=== PATIENT | female | born 1985 | race Caucasian/White ===

== ENCOUNTER 2016-03-22 12:19 | Outpatient (CLI) | payer OTHER | END 2016-03-22 12:20 | disposition home or self-care (01) | DX: Z53.9 Procedure and treatment not carried out, unspecified reason (principal) ==

== ENCOUNTER 2016-05-07 10:19 | Outpatient (CLI) | payer OTHER | END 2016-05-07 10:20 | disposition home or self-care (01) | DX: Z36 Encounter for antenatal screening of mother (principal) ==

== ENCOUNTER 2016-06-25 08:00 | Outpatient (CLI) | payer OTHER | END 2016-06-25 08:01 | disposition home or self-care (01) | DX: N39.0 Urinary tract infection, site not specified (principal) ==

== ENCOUNTER 2016-07-10 08:00 | Outpatient (CLI) | payer OTHER | END 2016-07-10 08:01 | disposition home or self-care (01) | DX: Z36 Encounter for antenatal screening of mother (principal) ==

== ENCOUNTER 2016-07-11 07:53 | Outpatient (CLI) | payer OTHER ==
--- NOTE | 2016-07-11 13:42 | Ultrasound Report ---
OB ULTRASOUND: 07/11/2016 CLINICAL INDICATION: Anatomy screen, late care. TECHNIQUE: Real-time scanning was performed with in store representative static images obtained. LAST MENSTRUAL PERIOD -- Clinical Age -- US Age 36 weeks 4 days EFW Hadlock 2821 g EFW% Hadlock -- Heart Rate 135 bpm EDC -- US EDC 08/04/2016 BPD [place] 36 weeks 5 days; means mm 90.6 HC [place] 38 weeks 0 days; means mm 332.6 AC [place] 35 weeks 2 days; means mm 313.9 FL [place] 36 weeks 2 days; means mm 70.7 Presentation cephalic Placental Location anterior L Cervical Length 2.8 cm Amniotic Fluid 10.1 5-50% FINDINGS: There is a single viable intrauterine gestation in cephalic presentation. heart rate is 135 BPM. The placenta is anterior, without evidence of previa. Amniotic fluid volume is normal, with an NASRIN of 10.0. By size, the fetus measures 36.6 weeks. The following anatomic structures were visualized and appear normal: The intracranial contents, including the ventricles; the lips and orbits; the spine; the heart, including 4 chamber view and outflow tracts, and diaphragm; the abdominal contents, including the stomach, the bilateral kidneys, and urinary bladder, as well as a normal 3 vessel cord and placental insertion; 4 limbs. Imaging of the posterior fossa and abdominal cord insertion are limited by late dates and positioning. No free fluid or adnexal lesion is seen. IMPRESSION: SINGLE VIABLE INTRAUTERINE GESTATION, MEASURING 36.6 WEEKS BY SIZE. THE VISUALIZED ANATOMY IS NORMAL, BUT IMAGING OF THE POSTERIOR FOSSA AND ABDOMINAL UMBILICAL CORD INSERTION ARE LIMITED BY SIZE AND POSITIONING. MTDD
== END 2016-07-11 07:54 | disposition home or self-care (01) ==
LOC: DI 07:53
PROVIDERS: ATTEND Obstetrics & Gynecology
DX: Z36 Encounter for antenatal screening of mother (principal)
CPT/HCPCS: 76811

== ENCOUNTER 2016-07-17 08:00 | Outpatient (CLI) | payer OTHER | END 2016-07-17 08:01 | disposition home or self-care (01) | DX: Z36 Encounter for antenatal screening of mother (principal) ==

== ENCOUNTER 2016-07-17 09:46 | Outpatient (CLI) | payer OTHER ==
[2016-07-17 11:19] LABS: HCT - HEMATOCRIT 34.7 % (37.0-47.0); HGB - HEMOGLOBIN 11.6 g/dL (12.0-16.0); MEAN CORPUSCULAR HEMOGLOBIN 25.7 pg (27.0-31.0); MEAN CORPUSCULAR HGB CONC 33.5 g/dL (32.0-36.0); MEAN CORPUSCULAR VOLUME 76.7 fL (81.0-99.0); MEAN PLATELET VOLUME 7.8 fL (7.9-10.8); RED BLOOD COUNT 4.52 10^6/uL (4.20-5.40); RED CELL DISTRIBUTION WIDTH 15.8 % (12.0-15.0); WHITE BLOOD COUNT 9.3 x10^3/uL (4.8-10.8)
[2016-07-17 12:07] LABS: HEMOGLOBIN A1C 0.54 g/dL
== END 2016-07-17 09:47 | disposition home or self-care (01) ==
LOC: LAB 09:46
PROVIDERS: ATTEND Obstetrics & Gynecology
DX: Z36 Encounter for antenatal screening of mother (principal)
CPT/HCPCS: 36415; 82950; 83036; 86850; 87081

== ENCOUNTER 2016-07-25 08:32 | Inpatient (IN) | payer OTHER ==
[2016-07-25] MEDS ORDERED: ONDANSETRON 4 MG/2 ML VIAL IVP PRN ×2 (09:18→23:01)
[2016-07-25] MEDS ORDERED: SODIUM CHLORIDE FLUSH 0.9% 10 ML SYRINGE IVP PRN (09:18)
[2016-07-25] MEDS ORDERED: fentaNYL 100 MCG/2 ML VIAL IVP PRN (09:18)
[2016-07-25 09:42] LABS: BASOPHILS # (AUTO) 0.1 10^3/uL (0.0-0.1); BASOPHILS % (AUTO) 0.5 %; EOSINOPHILS # (AUTO) 0.1 10^3/uL (0.0-0.7); EOSINOPHILS % (AUTO) 0.8 %; HCT - HEMATOCRIT 34.4 % (37.0-47.0); HGB - HEMOGLOBIN 11.4 g/dL (12.0-16.0); LYMPHOCYTES # (AUTO) 2.3 10^3/uL (1.5-3.5); LYMPHOCYTES % (AUTO) 22.1 %; MEAN CORPUSCULAR HEMOGLOBIN 25.5 pg (27.0-31.0); MEAN CORPUSCULAR HGB CONC 33.3 g/dL (32.0-36.0); MEAN CORPUSCULAR VOLUME 76.6 fL (81.0-99.0); MEAN PLATELET VOLUME 7.8 fL (7.9-10.8); MONOCYTES # (AUTO) 0.6 10^3/uL (0.0-1.0); MONOCYTES % (AUTO) 5.5 %; NEUTROPHILS # (AUTO) 7.3 10^3/uL (1.5-6.6); NEUTROPHILS % (AUTO) 71.1 %; RED BLOOD COUNT 4.49 10^6/uL (4.20-5.40); RED CELL DISTRIBUTION WIDTH 16.4 % (12.0-15.0); UNCORRECTED WHITE BLOOD COUNT 10.3 x10^3/uL; WHITE BLOOD COUNT 10.3 x10^3/uL (4.8-10.8)
[2016-07-25] MEDS: ACETAMINOPHEN 325 MG TABLET PO SCH ×2 (13:32→18:34)
[2016-07-25] MEDS ORDERED: OXYTOCIN/LACTATED RINGERS 250 ML IV ONE (14:21)
[2016-07-25] MEDS: LACTATED RINGERS 1,000 ML IV SCH ×3 (15:00→23:05)
[2016-07-25] MEDS ORDERED: OXYTOCIN/LACTATED RINGERS 250 ML IV SCH ×2 (15:00→23:50)
[2016-07-25] MEDS: SODIUM CHLORIDE FLUSH 0.9% 10 ML SYRINGE IVP SCH (15:13)
[2016-07-25] MEDS ORDERED: PENICILLIN G POTASSIUM 5,000,000 UNIT in SODIUM CHLORIDE 0.9% MINIBAG 100 ML IV SCH (20:32)
[2016-07-25] MEDS ORDERED: fent/BUPIV 2 MCG/0.125% 250 ML EP ONE (22:33)
[2016-07-25] MEDS ORDERED: LACTATED RINGERS 500 ML IV SCH (23:01)
[2016-07-25] MEDS ORDERED: NALOXONE 0.4 MG/ML VIAL IVP PRN (23:01)
[2016-07-25] MEDS ORDERED: METOCLOPRAMIDE 10 MG/2 ML VIAL IVP PRN (23:01)
[2016-07-25] MEDS ORDERED: diphenhydrAMINE INJ 50 MG/ML VIAL IVP PRN (23:01)
[2016-07-25] MEDS ORDERED: ePHEDrine 50 MG/ML AMP IVP PRN (23:01)
[2016-07-25] MEDS ORDERED: fent/BUPIV 2 MCG/0.125% 250 ML EP PRN (23:01)
[2016-07-25] MEDS ORDERED: NALBUPHINE 20 MG/ML AMP IVP PRN (23:01)
[2016-07-25] MEDS ORDERED: miSOPROStol 200 MCG TABLET ONE ×2 (23:34→23:46)
[2016-07-25] MEDS ORDERED: LACTATED RINGERS 1,000 ML IV SCH (23:45)
[2016-07-25] MEDS ORDERED: HYDROcod/ACETAM 5/325 MG TABLET PO PRN (23:50)
[2016-07-25] MEDS ORDERED: HYDROCORTISONE/PRAMOXINE 10 GM PR PRN (23:50)
[2016-07-25] MEDS ORDERED: diphenhydrAMINE 25 MG CAPSULE PO PRN (23:50)
[2016-07-25] MEDS ORDERED: WITCH HAZEL/GLYCERIN 1 EACH MED..PAD TOP PRN (23:50)
--- NOTE | 2016-07-25 23:57 | DELIVERY NOTE ---
Delivery Note - Instructions Kaibab/Slash: -Left hand click circles element as positive or present. -Right hand click slashes element as negative or not present. - Labor Labor: positive: Augmented by oxytocin - Delivery Method Infant Delivery Method: positive: Spontaneous vaginal delivery - Presentation Presentation: positive: Vertex - Nuchal Cord Nuchal Cord: positive: Present - Anesthetic Anesthetic Type: - Amniotic Fluid Description Amniotic Fluid Description: positive: Clear - Episiotomy Type Episiotomy Type: positive: None - Laceration Laceration: positive: None - Delivery Outcome Delivery Outcome: positive: Livebirth - [place]: positive: Placed in direct skin contact with mother, Stimulated, Warmed sex: positive: Male - Cord Cord: positive: 3 vessels, Other (Thin Cord) - Placenta Placenta: positive: Intact - Estimated Blood Loss Estimated Blood Loss (in cc): 350 - Post Delivery Events Post Delivery Events: positive: Other (Cytotech 800mcg)
[2016-07-26] MEDS ORDERED: PENICILLIN G POTASSIUM 2,500,000 UNIT in SODIUM CHLORIDE 0.9% 100ML 100 ML IV SCH (01:00)
[2016-07-26] MEDS: IBUPROFEN 600 MG TABLET PO SCH ×4 (02:47→20:39)
[2016-07-26] MEDS: SODIUM CHLORIDE FLUSH 0.9% 10 ML SYRINGE IVP SCH (03:00)
--- NOTE | 2016-07-26 03:55 | PROCEDURE REPORT ---
DATE OF PROCEDURE: 07/25/2016 00:00:00 PREDELIVERY DIAGNOSES 1. Term , labor. 2. Pitocin augmentation. POSTDELIVERY DIAGNOSES 1. Term , labor. 2. Pitocin augmentation. 3. Nuchal cord. 4. Thin umbilical cord. PROCEDURE: Manually assisted normal vaginal delivery. COUNTER HELPER: Luís Chamorro MD, FACOG, FICS. ANESTHESIA: Lulu Carrillo MD. COMPLICATIONS: None. BLOOD LOSS: 350. DRAINS: NONE. The patient straight cathed post-delivery. FINDINGS 1. At 2320, a living male infant was born over an intact perineum. Wieght 6 lbs 7 oz w Apgars 8/9. No congenital anomalies or trauma observed. 2. Shortly thereafter, the placenta was delivered intact with 3-vessel cord. There was nuchal cord x1, which was not a factor in the delivery. Cord was very thin with opacity of [place]'s jelly. The placenta was grade 2. 3. Inspection of perineum, vagina and cervix finds all of the anatomy intact. TECHNIQUE: The patient slowly brought the vertex to the perineum and she was allowed to labor down with augmentaion & epidural. She began to feel pelvic pressure and pushed with good effort. There was atraumatic and the patient was delivered from the OA position. Shoulders were delivered without difficulty. The cord was manually reduced. Post-delivery, was placed on the maternal abdomen. Cord was doubly clamped and transected. Cord blood samples were taken. Placenta was delivered spontaneously and inspected to be intact. Mother, child and father all bonded together well and were quite happy. JOB #: [id number] EXT JOB #:[id number] MAXX
--- NOTE | 2016-07-26 04:02 | HISTORY & PHYSICAL EXAMINATION ---
DATE OF ADMISSION: 07/25/2016 ADMISSION DIAGNOSES 1. Spontaneous rupture of membranes, labor. 2. Term at 38 weeks 4 days. 3. Mild anemia. HISTORY OF PRESENT ILLNESS: The patient is a 31-year-old 2, para 1-0-0-1 woman who notes rupture of membranes at 0500 this morning with clear fluid. She may have been leaking yesterday evening as well. She has no signs or symptoms of preeclampsia, fever or foul vaginal discharge. She has only mild contractions. [facility] and has had a total of 10 vi sits thus far, all of which have been uneventful. BASIC LABORATORY: Blood type O positive, antibody screen negative, RPR negative, rubella equivocal, G BS nonreactive, chlamydia/gonorrhea negative, 1-hour Glucola test 116, group B strep status negative. PAST MEDICAL HISTORY: No chronic disease problems. PAST SURGICAL HISTORY: None. ALLERGIES: NO KNOWN DRUG ALLERGIES. MEDICATIONS: vitamins with iron. SOCIAL HISTORY: [place] dependent, not currently working. Reformed smoker. No drug or alcohol use. FAMILY HISTORY: No congenital anomalies. No chromosomal or inheritable disease problems. History of r marlee did have retardation, but not fragile X. REVIEW OF SYSTEMS CONSTITUTIONAL: Negative. HEENT: Negative. HEART: Negative. LUNGS: Negative. GASTROINTESTINAL: Negative. GENITOURINARY: Reference HPI and record. PHYSICAL EXAMINATION GENERAL: The patient comfortable in bed. Alert, oriented, cooperative. VITAL SIGNS: Temperature 98.2, pulse 97, blood pressure 130/80, respirations 16, oxygen saturation 99 . HEENT: Supple neck. No thyromegaly. EOMI. No icterus. RESPIRATORY: Lungs clear. CARDIAC: Regular, no murmur or gallop. ABDOMEN: No hepatosplenomegaly or tenderness. UTERUS: Consistent with dates, occasional mild contraction, normal resting tone. Vertex estimated fet al weight 6 pounds. EXTERNAL GENITALIA: No lesions. VAGINA: No blood, clear amniotic fluid, nonfoul. CERVIX: Posterior 2-3, 30% effaced. EXTREMITIES: Nonedematous. NEUROLOGIC: Grossly intact. ADMISSION LABORATORY. White count 10.3, hemoglobin 11.4, platelets 283. ASSESSMENT: This is a patient who has ruptured membranes and may have been leaking for approximately 12 hours prior to admission. There are no signs or symptoms of infection. Pelvis seems adequate for s ize of the fetus and current strip is category 1. PLAN: Observation, and if needed, Pitocin augmentation. At 24-hour point, may begin GBS prophylaxis. JOB #: [id number] EXT JOB #:[id number]
[2016-07-26] MEDS: ACETAMINOPHEN 325 MG TABLET PO SCH ×2 (05:13→14:34)
[2016-07-26] MEDS: DOCUSATE SODIUM 100 MG CAPSULE PO SCH ×2 (08:50→20:39)
--- NOTE | 2016-07-26 09:15 | PROVIDER PROGRESS NOTE ---
Subjective - General Admit Date: 07/25/16 Procedure Date: 07/25/16 Post Op Days: 1 Procedure Performed: NVD - Review of Systems Wound/Incisions: positive: Other (None) General: positive: Fatigue, Other ("Exhausted after late night delivery") HEENT: positive: No symptoms Pulmonary: positive: No symptoms Cardiovascular: positive: No symptoms Gastrointestinal: positive: No symptoms Genitourinary: positive: Other (Mild nonfoul lochia) Musculoskeletal: positive: No symptoms, Foot pain Skin: positive: No symptoms Objective - Patient Data Vital Signs: Vital Signs x48h Temp Pulse Resp BP BP Pulse Ox 07/26/16 08:42 97.7 F 72 16 123/58 L 99 07/26/16 03:36 98.1 F 68 14 110/46 L 95 07/26/16 02:30 98.2 F 78 16 111/63 97 07/26/16 01:30 15 106/62 07/26/16 01:15 18 111/53 L Weight: Weight 07/24/16 07/25/16 07/26/16 23:59 23:59 23:59 Weight (kg) 77.564 kg Intake & Output: Intake and Output Totals x24h 07/24/16 07/25/16 07/26/16 23:59 23:59 23:59 Intake Total 2900 Output Total 700 840 Balance 2200 -840 - Lab Results Lab Results: 07/25/16 09:33 Other Lab Results: Lab Results x24hrs 07/25/16 Range/Units 09:33 WBC 10.3 (4.8-10.8) x10^3/uL RBC 4.49 (4.20-5.40) 10^6/uL Hgb 11.4 L (12.0-16.0) g/dL Hct 34.4 L (37.0-47.0) % MCV 76.6 L (81.0-99.0) fL MCH 25.5 L (27.0-31.0) pg MCHC 33.3 (32.0-36.0) g/dL RDW 16.4 H (12.0-15.0) % Plt Count 283 (130-450) 10^3/uL MPV 7.8 L (7.9-10.8) fL Neut # 7.3 H (1.5-6.6) 10^3/uL Lymph # 2.3 (1.5-3.5) 10^3/uL [place] # 0.6 (0.0-1.0) 10^3/uL Eos # 0.1 (0.0-0.7) 10^3/uL Baso # 0.1 (0.0-0.1) 10^3/uL Absolute Nucleated RBC 0.00 x10^3/uL Nucleated RBCs 0.0 /100WBC - Current Medications Current Medications: Current Medications Generic Name Dose Route Start Last Admin Trade Name Freq PRN Reason Stop Dose Admin Acetaminophen 650 mg 07/25/16 10:00 07/26/16 05:13 Tylenol PO 650 mg Q6H JULIANNA Administration Docusate Sodium 100 mg 07/26/16 09:00 07/26/16 08:50 Colace 100mg Capsule PO 100 mg BID JULIANNA Administration Fentanyl 50 mcg 07/25/16 09:18 07/25/16 20:59 Fentanyl IVP 50 mcg Q1H PRN Administration PAIN Oxytocin/Lactated Ringer's 250 mls @ 1 mls/hr 07/25/16 15:00 07/25/16 15:14 Pitocin/Lactated Ringers IV Not Given TITR [facility] Protocol 1 MILLIUNIT/MIN Ibuprofen 600 mg 07/25/16 23:45 07/26/16 08:50 Motrin PO 600 mg Q6H JULIANNA Administration Sodium Chloride 10 ml 07/25/16 14:00 07/26/16 03:00 Normal Saline Flush 0.9% IVP 10 ml Q8HR JULIANNA Administration Physical Exam - Physical Exam General: positive: No acute distress, Alert HEENT: positive: Moist mucous membranes Neck: positive: Supple w/out meningeal sx Abdomen: positive: Other (Nontender) Female : positive: Enlarged uterus (18 wks Nontender) Extremities: positive: No pedal edema Skin: positive: Warm and dry Neurologic: positive: Alert and Oriented X 3, Normal motor/no weakness, Normal Sensation, Normal Speech Assessment/Plan - Assessment/Plan Assessment: Recovering from Delivery Well Plan: Requires supportive care to recover
[2016-07-27] MEDS: IBUPROFEN 600 MG TABLET PO SCH ×2 (04:10→10:33)
[2016-07-27] MEDS: DOCUSATE SODIUM 100 MG CAPSULE PO SCH (08:07)
[2016-07-27] MEDS: ACETAMINOPHEN 325 MG TABLET PO SCH ×2 (08:07→14:12)
--- NOTE | 2016-07-27 09:28 | PROVIDER PROGRESS NOTE ---
Subjective - General Admit Date: 07/25/16 Procedure Date: 07/25/16 Post Op Days: 2 Procedure Performed: NVD - Review of Systems Wound/Incisions: positive: Other (None) General: positive: No symptoms (Pain 03/13. well controlled. Breast feeding. 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), Fatigue, Other ( "Exhausted after late night delivery") HEENT: positive: No symptoms Pulmonary: positive: No symptoms Cardiovascular: positive: No symptoms Gastrointestinal: positive: No symptoms Genitourinary: positive: Other (Mild nonfoul lochia) Musculoskeletal: positive: No symptoms, Foot pain Skin: positive: No symptoms Objective - Patient Data Reviewed Vital Signs: Yes Vital Signs: Vital Signs x48h Temp Pulse Resp BP Pulse Ox 07/27/16 08:08 36.5 C 70 18 122/68 99 07/27/16 04:02 36.7 C 75 14 108/72 95 Weight: Weight 07/25/16 07/26/16 07/27/16 23:59 23:59 23:59 Weight (kg) 77.564 kg Intake & Output: Intake and Output Totals x24h 07/25/16 07/26/16 07/27/16 23:59 23:59 23:59 Intake Total 2900 Output Total 700 840 Balance 2200 -840 - Lab Results Lab Results: 07/25/16 09:33 - Current Medications Current Medications: Current Medications Generic Name Dose Route Start Last Admin Trade Name Freq PRN Reason Stop Dose Admin Acetaminophen 650 mg 07/25/16 10:00 07/27/16 08:07 Tylenol PO 650 mg Q6H JULIANNA Administration Acetaminophen/Hydrocodone Bitart 1 tab 07/25/16 23:50 07/26/16 11:38 [place] 5/325 PO 1 tab Q4HR PRN Administration PAIN Docusate Sodium 100 mg 07/26/16 09:00 07/27/16 08:07 Colace 100mg Capsule PO 100 mg BID JULIANNA Administration Ibuprofen 600 mg 07/25/16 23:45 07/27/16 04:10 Motrin PO 600 mg Q6H JULIANNA Administration - Physical Exam General Appearance: positive: No acute distress, Alert Respiratory: positive: Chest non-tender, No respiratory distress, Breath sounds nml Cardiovascular: positive: Regular rate & rhythm, No murmur, No gallop Abdomen: positive: Non-tender, Mass (uterus is U-2 nontender) Skin: positive: Color nml Extremities: positive: Non-tender. negative: Calf tenderness, Jason's sign/ cords Neurologic/Psychiatric: positive: Oriented x3 Impression/Plan - Problem List Problem List: SP Doing well Teaching: Breast feeding Mastitis Bleeding, temps and pain. Contraception Pt needs MMR RTC 6 weeks Discharge Meds Motrin 800 mg Colace 100 mg Send time
--- NOTE | 2016-07-27 09:41 | Discharge Plan ---
Discharge Plan Disposition: 01 Home, Self Care Condition: Good Diet: Regular Shower Restrictions: No Driving Restrictions: No Weight Bearing: Full Weight No Smoking: If you smoke, Please STOP! Call for help. Follow-up with: Luís Chamorro MD [Provider Admit Priv/Credential] -
[2016-07-27] MEDS ORDERED: MEASLES,MUMPS & RUBELLA VACC 0.5 ML VIAL SUBQ ONE (10:30)
[2016-07-27 12:44] VITALS: BP 109/61
--- NOTE | 2016-07-27 15:22 | Labor Flowsheet ---
Labor Flowsheet Datetime Report Generated by CPN: 07/27/2016 15:21 Datetime: 07/27/2016 12:43 VITAL SIGNS NBP Sys/Britney/Mean (mmHg): 109 : 61 : 77 Pulse: 71 SpO2 (%): 96 LaborFlag: Labor Datetime: 07/26/2016 02:57 Pain Relief Measures: Pain Medication Given Pain Coping: Requesting Pain Medication or Epidural Datetime: 07/26/2016 02:00 PAIN Pain Scale: 0 Datetime: 07/25/2016 23:19 STAGE 2 Pushing: Coached on Pushing; Urge to Push Pushing Position: Pushing with Contractions; Pushing Lithotomy Pushing Progress: Descent with Pushing Datetime: 07/25/2016 23:15 UTERINE ACTIVITY Monitor Mode: External Frequency (min): 1-2.5 Duration (sec): 30-90 Pattern: Normal: <= 5 Contractions in 10 Minutes Resting Tone (Palpate): Relaxed ASSESSMENT A Monitor Mode: External US FHR Baseline Rate : 115 Variability: Moderate 6-25 bpm Accelerations: 15X15 Decelerations: Variable Category: Category II Oxygen Method: Room Air Datetime: 07/25/2016 23:11 Nausea/Vomiting: Present Datetime: 07/25/2016 23:00 Pain Presence: Intermittent Pain Type: Cramping Pain Location: Other TEACHING Instructional Method: Verbal Plan of Care: Plan of Care Discussed Labor/Induction: Pushing Methods Pain Management: Epidural; Pain Scale/Goals Datetime: 07/25/2016 22:50 I/O Interventions: Straight Cath (ml) @ 700 Datetime: 07/25/2016 22:45 VAGINAL EXAM Dilatation (cm): 6.0 Effacement (%): 80 Station: -2 Exam by: BRUNO Negron Datetime: 07/25/2016 22:39 Actions for Decelerations: IV Bolus Patient Position/Activity: Left Tilt Datetime: 07/25/2016 22:37 ANESTHESIA Anesthesia Plans: Epidural Epidural Procedure: Loading Dose Datetime: 07/25/2016 22:00 Respirations: 16 Unit Routine: Medications Datetime: 07/25/2016 21:55 Cervix, Consistency: Soft Cervix, Position: Midposition Datetime: 07/25/2016 21:51 COMMUNICATION Communication: Call/Page Placed to Provider Provider Notified (Name): Dr. Carrillo Communication Comments: pt wants epidural Datetime: 07/25/2016 21:50 Medication Comments: LR bolus started for epidural Datetime: 07/25/2016 21:16 Temperature (C): 36.7 Datetime: 07/25/2016 21:02 Analgesics/Sedatives: Fentanyl (mcg) @ 50 Datetime: 07/25/2016 21:00 Medications: Antibiotics Datetime: 07/25/2016 20:48 MEDICATIONS Pitocin (milliunits): Increased to @ 9 Datetime: 07/25/2016 19:40 Pain Assessment Comments: uterine MATERNAL ASSESSMENT Level of Consciousness: Fully Conscious DTR's/Clonus: DTRs 2+; No Clonus Headache: Denies Breath Sounds, Left: Clear and Equal Breath Sounds, Right: Clear and Equal RUQ Epigastric Pain: Denies Comfort Measures: Breathing/Relaxation Datetime: 07/25/2016 19:00 Quality: Mild FHR Baseline Changes: No Baseline Change Membrane Status: Ruptured Amniotic Fluid Color: Clear Datetime: 07/25/2016 18:00 Pitocin Checklist: At Least 1 Acceleration of 15 bpm x 15 Seconds in 30 Minutes or Adequate Variabi lity MONTEVIDEO UNITS (Computed) Contractions in Ten Minutes: 4 Datetime: 07/25/2016 15:00 Stage of : Labor Contraction Comments: mild - not painful PATIENT CARE IV/Blood Work: IV Bag Number @ 1 Provider Reviewed Strip: Yes Notification Reason: Status Update Datetime: 07/25/2016 14:00 Membranes Rupture Method: Spontaneous Datetime: 07/25/2016 13:30 Membranes Ruptured Date/Time: 07/24/2016 17:00 Amniotic Fluid Amount: Small Nitrazine: Positive Datetime: 07/25/2016 12:51 Temperature Route: Oral Datetime: 07/25/2016 10:51 Vaginal Bleeding: None Lie 'A': Longitudinal Position 'A': Right Occipital Anterior Vaginal Exam Comments: Done @ 0900
--- NOTE | 2016-07-27 17:14 | DISCHARGE SUMMARY ---
DATE OF ADMISSION: 07/25/2016 DATE OF DISCHARGE: 07/27/2016 ADMITTING DIAGNOSES: 1. A 38 weeks 4-day term . 2. Spontaneous rupture of membranes 12 hours. 3. Mild anemia. DISCHARGE DIAGNOSES: 1. A 38 weeks 4-day term . 2. Spontaneous rupture of membranes 12 hours. 3. Mild anemia. 4. Nuchal cord x1. PROCEDURES: 1. Pitocin augmentation. 2. Epidural. 3. Spontaneous vaginal delivery. PRESENTING HISTORY: The patient is a 31-year-old G2, P1 female who was 38 weeks and 4 days. She had 1 0 visits so for. She states that she ruptured her membranes at roughly 5 o'clock with clear amniotic fluid. Her course had been unremarkable prior to this with the exception that she was rubell a equivocal. She had some delay in obtaining her 28-week labs. PHYSICAL EXAMINATION ON ADMISSION: Her cervix was noted to be 2-3 cm, 30% effaced with clear amniotic fluid. Laboratories on admission, her white count was 10.3, her hemoglobin was 11.4, platelets were 283. HOSPITAL COURSE: The patient was admitted at which time she was noted to be ruptured. She had no sign s of infection. Because of this, it was decided to start her on Pitocin. This was performed. She prog ressed to complete and delivered a live male infant, vertex presentation. all was doing well a t time of delivery. Her course has been unremarkable. Her diet has been advanced. She is h aving pain control with Motrin, as well as Tylenol. She is breast feeding at this time. She is being discharged to home on Colace, as well as Motrin. She is instructed to remain at pelvic rest for 6 wee ks. Her is being deployed in 3-1/2 weeks, therefore, and will be deployed for the next 18 mon ths. We discussed the issues of contraception and reminded her that is not adequate con traception. She has been instructed to monitor for mastitis as well as bleeding, temperature, pain, c mcc tenderness. JOB #: [id number] EXT JOB #:[id number]
== END 2016-07-27 15:10 | disposition home or self-care (01) | DRG 775 ==
LOC: WFO 08:32 → OB 08:35 → WFO 09:15 → OB 09:18
PROVIDERS: ADMIT Obstetrics & Gynecology; ATTEND Obstetrics & Gynecology
PROC: 10E0XZZ Delivery of Products of Conception, External Approach (ICD-10-PCS; principal; 2016-07-25)
DX: O99.02 Anemia complicating childbirth (principal); O60.14X0 Preterm labor third trimester with preterm delivery third trimester, not applicable or unspecified; D64.9 Anemia, unspecified; O69.81X0 Labor and delivery complicated by cord around neck, without compression, not applicable or unspecified; O69.89X0 Labor and delivery complicated by other cord complications, not applicable or unspecified; Z3A.38 38 weeks gestation of pregnancy; Z37.0 Single live birth
CPT/HCPCS: 36415; 85025; 99212

== ENCOUNTER 2016-08-06 16:28 | Inpatient (IN) | payer OTHER ==
[2016-08-06] MEDS ORDERED: IBUPROFEN 400 MG TABLET PO STA (17:09)
[2016-08-06] MEDS ORDERED: IBUPROFEN 400 MG TABLET PO ONE (17:14)
[2016-08-06 17:26] LABS: BILIRUBIN,URINE NEGATIVE (NEGATIVE)
[2016-08-06 17:28] LABS: UA w/ MICROSCOPIC CHARGE YES
[2016-08-06 17:36] LABS: UR CULTURE IF IND INDICATED
[2016-08-06] MEDS ORDERED: DOXYCYCLINE 100 MG TABLET PO STA (17:58)
[2016-08-06] MEDS ORDERED: DOXYCYCLINE 100 MG TABLET PO ONE (17:58)
[2016-08-06] MEDS: LACTATED RINGERS 1,000 ML IV SCH (18:12)
--- NOTE | 2016-08-06 18:46 | Ultrasound Preliminary Report ---
Exam: US Pelvic Complete - Non OB IMPRESSION: 1. Complex avascular material within the endometrial canal, which could represent blood products or r etained products of conception. 2. The ovaries were not visualized. [facility] SITE ID: [id number]
--- NOTE | 2016-08-06 18:47 | ED Physician Documentation ---
History of Present Illness - Stated complaint Stated Complaint: ABD PX - Chief complaint Chief Complaint: Abd Pain - Additonal information Additional information: hx from pt 1.5 weeks ago to ER with lower abd pain subj fever int heavy bleeding with abn odor breast feeding Review of Systems Constitutional: reports: Fever Cardiac: denies: Chest pain / pressure GI: reports: Abdominal Pain : reports: Vaginal bleeding. denies: Now EGA PD PAST MEDICAL HISTORY - Past Medical History Cardiovascular: None Respiratory: None Neuro: None Endocrine/Autoimmune: None GI: None MORTAR MIXER: None : None HEENT: None Psych: Depression Musculoskeletal: None Derm: None - Past Surgical History Past Surgical History: No - Present Medications Home Medications: Ambulatory Orders Medication Instructions Recorded Confirmed Pnv95/Ferrous Fumarate/FA 1 tab PO DAILYWM 08/06/16 08/06/16 [ Vitamin Tablet] Sertraline HCl [Sertraline HCl] 100 mg PO DAILY 08/06/16 08/06/16 - Allergies Allergies/Adverse Reactions: Allergies Allergy/AdvReac Type Severity Reaction Status Date / Time No Known Drug Allergies Allergy Verified 08/06/16 16:36 - Social History Does the pt smoke?: No Smoking Status: Former smoker Does the pt drink ETOH?: No Does the pt have substance abuse?: No - Immunizations Immunizations are current?: Yes - POLST Patient has POLST: No PD ED PE NORMAL - Vitals Vital signs reviewed: Yes - Neck Neck: Supple, no meningeal sign - Cardiac Cardiac: RRR - Respiratory Respiratory: No respiratory distress, Clear bilaterally - Abdomen Abdomen: Soft, Other (PP, soft, TTP lower abd, diff to palpate uterine size) - Derm Derm: Normal color - Extremities Extremities: No deformity, No tenderness to palpate, Normal ROM s pain, No edema , No calf tenderness / cord - Neuro Neuro: Alert and oriented X 3 Results - Vitals Vitals: Vital Signs - 24 hr 08/06/16 08/06/16 08/06/16 16:31 18:50 20:05 Temperature 36.5 C Heart Rate 85 68 64 Respiratory 14 16 16 Rate Blood Pressure 126/83 H 105/68 111/70 O2 Saturation 100 98 98 Oxygen O2 Source Room air - Labs Labs: Laboratory Tests 08/06/16 17:10 Urine Color YELLOW Urine Clarity CLEAR Urine pH 6.0 Ur Specific [place] 1.010 Urine Protein NEGATIVE Urine Glucose (UA) NEGATIVE Urine Ketones NEGATIVE Urine Occult Blood LARGE H Urine Nitrite NEGATIVE Urine Bilirubin NEGATIVE Urine Urobilinogen 0.2 (NORMAL) Ur Leukocyte Esterase SMALL H Urine RBC 6-10 H Urine WBC 6-10 H Ur Squamous Epith Cells FEW Squamous Urine Bacteria Few Ur Microscopic Review INDICATED Urine Culture Comments INDICATED - Rads (name of study) pelvic sono Radiology: See rad report (complex avascular material within endiometrial canal blood products vs retained POC. ovaries non vis) PD MEDICAL DECISION MAKING - ED course ED course: consulted Dr Walton, ordered TA sono, got a UA Dr Walton to ER and states she saw pts sono and she has retained POC and will need to go to the OR Dr Walton wrote orders Departure - Departure Disposition: ED Transfer to [facility] Clinical Impression: Retained products of conception
--- NOTE | 2016-08-06 18:49 | Ultrasound Report ---
EXAM: PELVIC ULTRASOUND EXAM DATE: 08/06/2016 05:33 PM. CLINICAL HISTORY: Post bleeding. 1.5 weeks post-vaginal delivery. Bilateral lower abdominal pa in. Fever. COMPARISON: None. TECHNIQUE: Realtime transabdominal imaging of the pelvis with static image documentation. FINDINGS: Uterus: Anteverted position. 11.7 cm in length. Homogeneous myometrial echotexture. Endometrium: Complex avascular material within the endometrial canal measuring approximately 7.8 x 2. 0 x 4.3 cm. Cervix: Unremarkable. Right Ovary: Not visualized. Left Ovary: Not visualized. Free Fluid: None. Other: None. IMPRESSION: 1. Complex avascular material within the endometrial canal, which could represent blood products or r etained products of conception. 2. The ovaries were not visualized. [facility] Referring Provider Line: [phone] SITE ID: [id number]
--- NOTE | 2016-08-06 20:23 | PREOP HISTORY & PHYSICAL ---
DATE OF ADMISSION/SURGERY: IDENTIFICATION: This is a 31-year-old, G2, P2-0-0-2, status post spontaneous vaginal delivery on 07/25/2016. HISTORY OF PRESENT ILLNESS: This is a patient of [facility] who presented to [facility] Emergency Department on 08/06/2016 approximately 12 days after delivery. She had complaints of lower abdominal pain and a subjective fever. She also noted heavy bleeding with an abnormal odor. Dr. Jenny De Guzman asked me to take a look at the patient, as she was concerned that the patient may have a endometritis. I was able to follow the patient into the radiology department and watch the dental technologist perform an ultrasound. There, there was gross blood, as well as products of conception in situ. I recommended to the patient that we proceed to a suction dilatation and curettage in order to avoid a secondary hemorrhage as well as infection, specifically endometritis. I discussed with the patient the risks, benefits, alternatives, indications, and expectations of a suction dilatation and curettage. Included in the risks were the risks of hemorrhage, infection, and uterine perforation. After patient's questions were answered to her satisfaction, she verbalized her desire to proceed with surgery. Consent forms have been signed. PAST MEDICAL HISTORY: Anxiety. PAST SURGICAL HISTORY: No previous surgeries. ALLERGIES: NO KNOWN DRUG ALLERGIES. MEDICATIONS: Zoloft 100 mg 1 tab p.o. daily. SOCIAL HISTORY: Patient's is Elías, and they have a girl Lashanda and a boy. He was delivered on 07/05/2016 at 38 weeks 4 days. PAST OBSTETRICAL HISTORY: Status post spontaneous vaginal delivery times 2 at term. PAST GYNECOLOGICAL HISTORY: One abnormal pap smear with spontaneous resolution. No STDs. FAMILY HISTORY: She denies any female carcinoma. REVIEW OF SYSTEMS: She denies any nausea, vomiting, or diarrhea. Negative unless otherwise stated. OBJECTIVE VITAL SIGNS: Temperature is 97.7, heart rate 85, blood pressure 126/83. GENERAL: Patient is a well-developed, well-nourished female in no apparent distress. She is alert and oriented x3. CARDIOVASCULAR: Rate is regular, no murmurs or rubs. PULMONARY: Lungs clear to auscultation bilaterally. ABDOMEN: Soft, benign. LABORATORY: Urinalysis today shows large blood, small leukocytes. RBCs are present, as well as white blood cells. Urine culture is indicated. ASSESSMENT 1. A 31-year-old, G3, P2-0-0-2 status post spontaneous vaginal delivery on 07/25. 2. Retained products of conception. PLAN 1. We will proceed to a suction, dilatation and curettage. 2. Patient will be given doxycycline 100 mg 1 tab p.o. prior to surgery and then another 200 mg p.o. in recovery. Prescriptions have been written for the patient for: 1. Vicodin #20 tablets. 2. Ibuprofen 800 mg #30 tablets. 3. Methergine 0.2 tablets for 2 days. 4. Augmentin 500/125 mg BID x 7 days. The patient should follow up with me at [facility] in 2 weeks for a routine postop visit. JOB #: [id number] EXT JOB #:[id number] MTDNicolle
[2016-08-06] MEDS ORDERED: LACTATED RINGERS 1,000 ML IV ONE ×3 (20:57→22:20)
[2016-08-06] MEDS ORDERED: KETOROLAC 30 MG/ML VIAL IVP ONE (21:30)
[2016-08-06] MEDS ORDERED: ROCURONIUM 50 MG/5 ML VIAL IVP ONE (21:30)
[2016-08-06] MEDS ORDERED: LIDOCAINE-MPF 2% 5 ML VIAL IM ONE (21:30)
[2016-08-06] MEDS ORDERED: DEXAMETHASONE 4 MG/ML VIAL IVP ONE (21:30)
[2016-08-06] MEDS ORDERED: SUCCINYLCHOLINE 200 MG/10 ML VIAL IVP ONE (21:30)
[2016-08-06] MEDS ORDERED: OXYTOCIN 10 UNIT/ML VIAL IV ONE (21:30)
[2016-08-06] MEDS ORDERED: fentaNYL 100 MCG/2 ML VIAL IVP ONE (21:30)
[2016-08-06] MEDS ORDERED: ONDANSETRON 4 MG/2 ML VIAL IVP ONE (21:30)
[2016-08-06] MEDS ORDERED: MIDAZOLAM 2 MG/2 ML VIAL IVP ONE (21:30)
[2016-08-06] MEDS ORDERED: PROPOFOL 200 MG/20 ML VIAL IVP ONE (21:30)
[2016-08-06 22:02] LABS: BASOPHILS # (AUTO) 0.1 10^3/uL (0.0-0.1); BASOPHILS % (AUTO) 0.8 %; EOSINOPHILS # (AUTO) 0.2 10^3/uL (0.0-0.7); EOSINOPHILS % (AUTO) 2.4 %; HCT - HEMATOCRIT 30.8 % (37.0-47.0); HGB - HEMOGLOBIN 9.8 g/dL (12.0-16.0); LYMPHOCYTES # (AUTO) 3.9 10^3/uL (1.5-3.5); LYMPHOCYTES % (AUTO) 47.2 %; MEAN CORPUSCULAR HEMOGLOBIN 25.1 pg (27.0-31.0); MEAN CORPUSCULAR HGB CONC 31.8 g/dL (32.0-36.0); MEAN CORPUSCULAR VOLUME 78.7 fL (81.0-99.0); MEAN PLATELET VOLUME 7.4 fL (7.9-10.8); MONOCYTES # (AUTO) 0.5 10^3/uL (0.0-1.0); MONOCYTES % (AUTO) 6.3 %; NEUTROPHILS # (AUTO) 3.6 10^3/uL (1.5-6.6); NEUTROPHILS % (AUTO) 43.3 %; NUCLEATED RED BLOOD CELLS AUTO 0.1 /100WBC; RED BLOOD COUNT 3.91 10^6/uL (4.20-5.40); RED CELL DISTRIBUTION WIDTH 17.3 % (12.0-15.0); UNCORRECTED WHITE BLOOD COUNT 8.2 x10^3/uL; WHITE BLOOD COUNT 8.2 x10^3/uL (4.8-10.8)
--- NOTE | 2016-08-06 22:06 | OPERATIVE REPORT ---
Operative Report - Other Other Information/Narrative: Date of operation: 08/06/2016 Surgeon: Art Walton DO FACOG Paralegal Specialist: None Production Corrugator: Art Mortensen CRNA Anesthesia: GET Pre-op Dx: 1. 31 yo 2. S/p 07/25/2016 3. Retained products of conception Post-op Dx: 1. 31 yo 2. S/p 07/25/2016 3. Retained products of conception Procedure: Suction dilation and curettage Findings: Products of conception in-utero Specimens: Endometrial curettings EBL: 700 mL Drains: None Complications: None
[2016-08-06] MEDS ORDERED: HYDROcod/ACETAM 5/325 MG TABLET ONE (23:13)
--- NOTE | 2016-08-06 23:38 | PROVIDER PROGRESS NOTE ---
Subjective - Prog Note Date Prog Note Date: 08/06/16 Prog Note Time: 23:36 - Subjective Pt reports feeling: No change (Called to recovery by RN. States that the patient went to the bedside commode and a large and small clot came out with urination. Patient's first Hgb after surgery was 9.8. Patient had heavy vaginal bleeding and received cytotec 200 mcg 3 tabs SL. Patient was noting some cramping as well.) Objective - Vital Signs/Intake & Output Vital Signs: Vital Signs x48h Temp Pulse Resp BP BP Pulse Ox 08/06/16 23:25 84 16 116/66 98 08/06/16 23:00 92 18 122/80 100 08/06/16 22:31 98.1 F 82 18 116/72 97 08/06/16 22:30 97 08/06/16 22:20 98 08/06/16 22:15 97 08/06/16 22:10 100 08/06/16 22:05 100 08/06/16 22:00 100 08/06/16 21:55 100 08/06/16 21:49 100 08/06/16 20:05 64 16 111/70 98 08/06/16 18:50 68 16 105/68 98 08/06/16 16:31 97.7 F 85 14 126/83 H 100 - Objective General Appearance: positive: No acute distress, Other (Pale) Abdomen: positive: Non-tender, Other (Firm fundus, firm lower segment. Pelvic exam with scant blood on examination glove. Uterus very firm.) - Lab Results Fish Bones: 08/06/16 21:58 Other Labs: Lab Results x24hrs 08/06/16 08/06/16 Range/Units 21:58 17:10 WBC 8.2 (4.8-10.8) x10^3/uL RBC 3.91 L (4.20-5.40) 10^6/uL Hgb 9.8 L (12.0-16.0) g/dL Hct 30.8 L (37.0-47.0) % MCV 78.7 L (81.0-99.0) fL MCH 25.1 L (27.0-31.0) pg MCHC 31.8 L (32.0-36.0) g/dL RDW 17.3 H (12.0-15.0) % Plt Count 315 (130-450) 10^3/uL MPV 7.4 L (7.9-10.8) fL Neut # 3.6 (1.5-6.6) 10^3/uL Lymph # 3.9 H (1.5-3.5) 10^3/uL [place] # 0.5 (0.0-1.0) 10^3/uL Eos # 0.2 (0.0-0.7) 10^3/uL Baso # 0.1 (0.0-0.1) 10^3/uL Absolute Nucleated RBC 0.01 x10^3/uL Nucleated RBCs 0.1 /100WBC Urine Color YELLOW Urine Clarity CLEAR (CLEAR) Urine pH 6.0 (5.0-7.5) PH Ur Specific [place] 1.010 (1.002-1.030) Urine Protein NEGATIVE (NEGATIVE) mg/dL Urine Glucose (UA) NEGATIVE (NEGATIVE) mg/dL Urine Ketones NEGATIVE (NEGATIVE) mg/dL Urine Occult Blood LARGE H (NEGATIVE) Urine Nitrite NEGATIVE (NEGATIVE) Urine Bilirubin NEGATIVE (NEGATIVE) Urine Urobilinogen 0.2 (NORMAL) (NORMAL) E.U./dL Ur Leukocyte Esterase SMALL H (NEGATIVE) Urine RBC 6-10 H (0-5) /HPF Urine WBC 6-10 H (0-5) /HPF Ur Squamous Epith Cells FEW Squamous (<= Few) Urine Bacteria Few (None Seen) /HPF Ur Microscopic Review INDICATED Urine Culture Comments INDICATED Assessment/Plan - Problem List (1) Vaginal bleeding Impression: 1. 31 yo S/p 07/25/2016 2. S/p suction D&C 08/06/2016 for retained products of conception 3. Heavy vaginal bleeding after procedure. Cytotec seems to have worked. Will recheck H/H since patient looks pale. May need to give PRBC if H/H <7 gm/dL. 4. Pain controlled with vicodin
[2016-08-06 23:41] LABS: HCT - HEMATOCRIT 25.7 % (37.0-47.0); HGB - HEMOGLOBIN 8.2 g/dL (12.0-16.0)
--- NOTE | 2016-08-06 23:45 | OPERATIVE REPORT ---
DATE OF SURGERY: 08/06/2016 00:00:00 SURGEON: Roya Walton DO FACOG WINDING MACHINE OPERATOR: None. OIL SPOT WASHER: Elías Mortensen CRNA. ANESTHESIA: General endotracheal tube. PREOPERATIVE DIAGNOSES: 1. A 31-year-old G2, P2-0-0-2. 2. Status post 07/25/2016 spontaneous vaginal delivery. 3. Retained products of conception. POSTOPERATIVE DIAGNOSES. 1. A 31-year-old G2, P2-0-0-2. 2. Status post 07/25/2016 spontaneous vaginal delivery. 3. Retained products of conception. PROCEDURE: Suction dilatation and curettage. FINDINGS: Products of conception in utero that were very adherent. SPECIMENS: Endometrial curettings. ESTIMATED BLOOD LOSS: 700 mL. DRAINS: None. COMPLICATIONS: None. BRIEF HISTORY: The patient is a patient of [facility] [place] who had a spontaneous vaginal delivery on 07/25/2016. The patient had a term delivery and there were no complications. Estimated blood loss at the time of delivery was 350 mL. It was noted that the placenta was intact. The patient, however, presented to the emergency department earlier today with complaints of increasing vaginal bleeding, abdominal pain and a malodorous vaginal discharge. A pelvic ultrasound revealed that the patient had a significant amount of endometrial products of conception as well as blood. I recommended to patient to undergo a suction dilatation and curettage as for her to continue with having products of conception could lead to hemorrhage as well as infection. I discussed with the patient the risks, benefits, alternatives, indications and expectations of surgery. Included in our discussion were not limited to but did include the risk of hemorrhage, infection, and uterine perforation. After all the patient's questions were answered to her satisfaction , she agreed to proceeding with the suction dilatation and curettage. Consent forms have been signed. OPERATION IN DETAIL: The patient was identified, consented, and taken to the operating room where IV access was already in place. She was given satisfactory general endotracheal tube anesthesia as per Elías Mortensen. The patient was given 1 gram of Ancef IV for postoperative endometritis prophylaxis. The patient was then prepped and draped in normal sterile fashion in lithotomy position using Yello-fins stirrups. A time-out was then performed correctly identifying the patient, site of the procedure and the procedure itself. An open-sided speculum was placed in the vagina and a single-toothed tenaculum was placed on top of the anterior lip of the cervix. A rigid curved 10-Kazakh suction curette was used to curet the endometrium. The tissue was quite adherent to the endometrium. Both the suction and sharp curettage were performed until a satisfactory endometrial cry was palpated throughout the entire endometrium. At the end of the case, hemostasis was noted and the uterus was quite firm and about the size of a softball. All instruments were removed out of the vagina. The patient tolerated the procedure well though she had a difficult time waking up from anesthesia. She bit down quite hard on the endotracheal tube and appeared to bite her lip. It also appeared that the patient may have regurgitated a little bit of water. This was suctioned out as well as could be done. The patient was taken to the recovery room in stable condition. She will be discharged home later today after postoperative criteria are met. Given the large EBL a stat CBC was performed. This revealed a white count of 8.2, hemoglobin 9.8 and hematocrit of 30.8. As I recall the patient's discharge hemoglobin from delivery was about 10. Prescriptions for Vicodin, ibuprofen and Methergine have been given have been written for patient. In addition, I will give her a prescription for Augmentin for 7 days for endometritis prophylaxis. The patient is currently . I explained to the patient's , Elías, that I would like to see the patient at [facility] in about 2 weeks for a routine postoperative examination. All sponge, lap and needle counts were correct x2 as per nurse report. JOB #: [id number] EXT JOB #:[id number] [facility]ITAL[facility]icol[facility]
--- NOTE | 2016-08-07 00:46 | PROVIDER PROGRESS NOTE ---
Subjective - Prog Note Date Prog Note Date: 08/07/16 Prog Note Time: 00:44 Objective - Vital Signs/Intake & Output Reviewed Vital Signs: Yes Vital Signs: Vital Signs x48h Temp Pulse Resp BP BP Pulse Ox 08/06/16 23:44 98.1 F 79 16 113/69 97 08/06/16 23:25 84 16 116/66 98 08/06/16 23:00 92 18 122/80 100 08/06/16 22:31 98.1 F 82 18 116/72 97 08/06/16 22:30 97 08/06/16 22:20 98 08/06/16 22:15 97 08/06/16 22:10 100 08/06/16 22:05 100 08/06/16 22:00 100 08/06/16 21:55 100 08/06/16 21:49 100 08/06/16 20:05 64 16 111/70 98 08/06/16 18:50 68 16 105/68 98 - Lab Results Fish Bones: 08/06/16 23:36 Other Labs: Lab Results x24hrs 08/06/16 08/06/16 08/06/16 Range/Units 23:36 21:58 17:10 WBC 8.2 (4.8-10.8) x10^3/uL RBC 3.91 L (4.20-5.40) 10^6/uL Hgb 8.2 L 9.8 L (12.0-16.0) g/dL Hct 25.7 L 30.8 L (37.0-47.0) % MCV 78.7 L (81.0-99.0) fL MCH 25.1 L (27.0-31.0) pg MCHC 31.8 L (32.0-36.0) g/dL RDW 17.3 H (12.0-15.0) % Plt Count 315 (130-450) 10^3/uL MPV 7.4 L (7.9-10.8) fL Neut # 3.6 (1.5-6.6) 10^3/uL Lymph # 3.9 H (1.5-3.5) 10^3/uL [place] # 0.5 (0.0-1.0) 10^3/uL Eos # 0.2 (0.0-0.7) 10^3/uL Baso # 0.1 (0.0-0.1) 10^3/uL Absolute Nucleated RBC 0.01 x10^3/uL Nucleated RBCs 0.1 /100WBC Urine Color YELLOW Urine Clarity CLEAR (CLEAR) Urine pH 6.0 (5.0-7.5) PH Ur Specific [place] 1.010 (1.002-1.030) Urine Protein NEGATIVE (NEGATIVE) mg/dL Urine Glucose (UA) NEGATIVE (NEGATIVE) mg/dL Urine Ketones NEGATIVE (NEGATIVE) mg/dL Urine Occult Blood LARGE H (NEGATIVE) Urine Nitrite NEGATIVE (NEGATIVE) Urine Bilirubin NEGATIVE (NEGATIVE) Urine Urobilinogen 0.2 (NORMAL) (NORMAL) E.U./dL Ur Leukocyte Esterase SMALL H (NEGATIVE) Urine RBC 6-10 H (0-5) /HPF Urine WBC 6-10 H (0-5) /HPF Ur Squamous Epith Cells FEW Squamous (<= Few) Urine Bacteria Few (None Seen) /HPF Ur Microscopic Review INDICATED Urine Culture Comments INDICATED Assessment/Plan - Problem List (1) Vaginal bleeding Impression: 31 yo S/p 07/25/2016 S/p suction D&C 08/06/2016 for retained products of conception with large EBL 700 mL Hgb decreased to 8.2 Will continue to watch clinically. Anticipate discharge to home when bleeding improved and patient stable.
--- NOTE | 2016-08-07 01:47 | PROVIDER PROGRESS NOTE ---
Subjective - Prog Note Date Prog Note Date: 08/07/16 Prog Note Time: 01:43 - Subjective Pt reports feeling: Worse Subjective: Called emergently by RN in Med Surg. Patient kept as extended post-op recovery. Hgb decreased from 9.8 to 8.2. Cytotec given and bleeding seemed to improve. Patient's legs were dangled and then patient was allowed to use the bedside commode. The patient valsalved to have BM and syncopal event occurred. About 100 mL of blood tinged urine in commode. No blood clots noted. Per Jaye RN, patient's eyes rolled back into her head and had to be given sternal rub to wake up. Patient alert and oriented by the time I arrived. Objective - Vital Signs/Intake & Output Reviewed Vital Signs: Yes Vital Signs: Vital Signs x48h Temp Pulse Resp BP BP Pulse Ox 08/06/16 23:44 98.1 F 79 16 113/69 97 08/06/16 23:25 84 16 116/66 98 08/06/16 23:00 92 18 122/80 100 08/06/16 22:31 98.1 F 82 18 116/72 97 08/06/16 22:30 97 08/06/16 22:20 98 08/06/16 22:15 97 08/06/16 22:10 100 08/06/16 22:05 100 08/06/16 22:00 100 08/06/16 21:55 100 08/06/16 21:49 100 08/06/16 20:05 64 16 111/70 98 08/06/16 18:50 68 16 105/68 98 - Objective General Appearance: positive: Lethargic Abdomen: positive: Non-tender, Other (Soft, benign. Perineum dry but soaked sanitary pad. No clots.) - Lab Results Fish Bones: 08/06/16 23:36 Other Labs: Lab Results x24hrs 08/06/16 08/06/16 08/06/16 Range/Units 23:36 21:58 17:10 WBC 8.2 (4.8-10.8) x10^3/uL RBC 3.91 L (4.20-5.40) 10^6/uL Hgb 8.2 L 9.8 L (12.0-16.0) g/dL Hct 25.7 L 30.8 L (37.0-47.0) % MCV 78.7 L (81.0-99.0) fL MCH 25.1 L (27.0-31.0) pg MCHC 31.8 L (32.0-36.0) g/dL RDW 17.3 H (12.0-15.0) % Plt Count 315 (130-450) 10^3/uL MPV 7.4 L (7.9-10.8) fL Neut # 3.6 (1.5-6.6) 10^3/uL Lymph # 3.9 H (1.5-3.5) 10^3/uL [place] # 0.5 (0.0-1.0) 10^3/uL Eos # 0.2 (0.0-0.7) 10^3/uL Baso # 0.1 (0.0-0.1) 10^3/uL Absolute Nucleated RBC 0.01 x10^3/uL Nucleated RBCs 0.1 /100WBC Urine Color YELLOW Urine Clarity CLEAR (CLEAR) Urine pH 6.0 (5.0-7.5) PH Ur Specific [place] 1.010 (1.002-1.030) Urine Protein NEGATIVE (NEGATIVE) mg/dL Urine Glucose (UA) NEGATIVE (NEGATIVE) mg/dL Urine Ketones NEGATIVE (NEGATIVE) mg/dL Urine Occult Blood LARGE H (NEGATIVE) Urine Nitrite NEGATIVE (NEGATIVE) Urine Bilirubin NEGATIVE (NEGATIVE) Urine Urobilinogen 0.2 (NORMAL) (NORMAL) E.U./dL Ur Leukocyte Esterase SMALL H (NEGATIVE) Urine RBC 6-10 H (0-5) /HPF Urine WBC 6-10 H (0-5) /HPF Ur Squamous Epith Cells FEW Squamous (<= Few) Urine Bacteria Few (None Seen) /HPF Ur Microscopic Review INDICATED Urine Culture Comments INDICATED Assessment/Plan - Problem List (1) Vaginal bleeding Impression: S/p syncopal event, likely due to valsalva. Will change patient status to Observation. LR at 150 mL/ hr. Recheck CBC in AM. Syncope may be a function of blood loss as well. Blood transfusion if Hgb <7 or symptomatic 7-8. Methergine 0.2 mg po TID to control bleeding.
[2016-08-07] MEDS ORDERED: ONDANSETRON 4 MG/2 ML VIAL IVP PRN (01:55)
[2016-08-07] MEDS: AMPICILLIN 2 GM in SODIUM CHLORIDE 0.9% MINIBAG 100 ML IV SCH ×3 (06:39→17:55)
[2016-08-07] MEDS: ACETAMINOPHEN 500 MG TABLET PO SCH ×3 (06:39→17:33)
[2016-08-07 07:38] LABS: BASOPHILS % (AUTO) 0.1 %; LYMPHOCYTES % (AUTO) 9.4 %; MEAN CORPUSCULAR HEMOGLOBIN 24.5 pg (27.0-31.0); MEAN CORPUSCULAR HGB CONC 31.7 g/dL (32.0-36.0); MEAN CORPUSCULAR VOLUME 77.2 fL (81.0-99.0); MEAN PLATELET VOLUME 6.9 fL (7.9-10.8); MONOCYTES # (AUTO) 0.3 10^3/uL (0.0-1.0); MONOCYTES % (AUTO) 2.5 %; NEUTROPHILS # (AUTO) 9.8 10^3/uL (1.5-6.6); RED BLOOD COUNT 2.03 10^6/uL (4.20-5.40); RED CELL DISTRIBUTION WIDTH 17.5 % (12.0-15.0); UNCORRECTED WHITE BLOOD COUNT 11.1 x10^3/uL; WHITE BLOOD COUNT 11.1 x10^3/uL (4.8-10.8)
[2016-08-07 07:39] LABS: HCT - HEMATOCRIT 15.7 % (37.0-47.0)
[2016-08-07] MEDS: LACTATED RINGERS 1,000 ML IV SCH ×2 (08:00→10:24)
[2016-08-07 08:06] LABS: PLATELET ESTIMATE, MANUAL NORMAL (130-450,000) (NORMAL); PLATELET MORPHOLOGY NORMAL APPEARANCE (NORMAL)
[2016-08-07] MEDS: METHYLERGONOVINE 0.2 MG/ML AMP PO SCH ×3 (08:07→22:32)
[2016-08-07] MEDS: CHERRY SYRUP 10 ML UDC PO SCH ×3 (08:08→22:30)
--- NOTE | 2016-08-07 08:37 | PROVIDER PROGRESS NOTE ---
Subjective - Prog Note Date Prog Note Date: 08/07/16 Prog Note Time: 08:33 - Subjective Pt reports feeling: No change Subjective: Patient is lying in bed in Room 7. Elías and baby boy Asreal in pull out chair beside her. Irma notes a headache. Pain controlled with po meds but she is concerned about passing narcotics in her breast milk to the baby. Also concerned when her general anesthetics will be cleared from her body. She would like to breast feed her baby as he will be hungry soon. Worried how a blood transfusion will affect her body, either positively, or negatively. Objective - Vital Signs/Intake & Output Reviewed Vital Signs: Yes Vital Signs: Vital Signs x48h Temp Pulse Resp BP Pulse Ox 08/07/16 08:00 98.6 F 98 16 103/68 100 - Objective General Appearance: positive: No acute distress (Pale) Abdomen: positive: Non-tender, Other (Firm fundus. Normal vaginal bleeding.) - Lab Results Fish Bones: 08/07/16 07:11 Other Labs: Lab Results x24hrs 08/07/16 Range/Units 07:11 WBC 11.1 H (4.8-10.8) x10^3/uL RBC 2.03 L (4.20-5.40) 10^6/uL Hgb 5.0 L* (12.0-16.0) g/dL Hct 15.7 L* (37.0-47.0) % MCV 77.2 L (81.0-99.0) fL MCH 24.5 L (27.0-31.0) pg MCHC 31.7 L (32.0-36.0) g/dL RDW 17.5 H (12.0-15.0) % Plt Count 149 (130-450) 10^3/uL MPV 6.9 L (7.9-10.8) fL Neut # 9.8 H (1.5-6.6) 10^3/uL Lymph # 1.0 L (1.5-3.5) 10^3/uL [place] # 0.3 (0.0-1.0) 10^3/uL Eos # 0.0 (0.0-0.7) 10^3/uL Baso # 0.0 (0.0-0.1) 10^3/uL Absolute Nucleated RBC 0.00 x10^3/uL Nucleated RBCs 0.0 /100WBC Manual Slide Review Indicated Platelet Estimate NORMAL (130-450,000) (NORMAL) Platelet Morphology NORMAL APPEARANCE (NORMAL) RBC Morph Micro Appear 1+ HYPOCHROMASIA (NORMAL) Assessment/Plan - Problem List (1) Vaginal bleeding Impression: 31 yo S/p 07/25/2016 S/p suction dilation and curettage 08/06/2016 for retained products of conception Anemia secondary to hemorrhage, likely uterine atony D/w the patient the risks, benefits, indications and expectations of a blood transfusion. Explained potential for PE, stroke and MS without a blood transfusion as well as decreased milk supply. Also patient will feel better, resolve headache and recover sooner with a blood transfusion. I further explained to the patient that her anesthesia from surgery should have cleared. Also the benefits of taking po narcotics to control her pain outweigh the risks of a small amount of narcotics in her breast milk. The patient is hesitant and asks if she may still pump and dump. Told Crystal she may do that if she so chooses to. Explained to the patient that my best guess is that though she needed the suction and curettage for her retained products of conception, she bled due to the affect of the curettage itself causing bleeding and uterine atony. Explained that the sublingual cytotec help to contract the uterus and slow the bleeding. Will continue to use uterotonics (ie methergine) as well as continue aggressive pain control with NSAIDS and tylenol. Will plan to transfuse 4 units of PRBC. Will recheck H/H to make sure she has an appropriate rise (1 gm of Hgb for every unit). Patient satisfied with my discussion with her and all questions answered. Will proceed with transfusion, po uterotonics, po pain meds.
[2016-08-07] MEDS ORDERED: oxyCODONE 5 MG TABLET PO PRN (09:05)
[2016-08-07] MEDS: DOCUSATE SODIUM 100 MG CAPSULE PO SCH ×2 (10:23→22:33)
[2016-08-07] MEDS: CELECOXIB 100 MG CAPSULE PO SCH ×2 (10:23→22:33)
[2016-08-07] MEDS: SERTRALINE 50 MG TABLET PO SCH (10:23)
--- NOTE | 2016-08-07 20:13 | PROVIDER PROGRESS NOTE ---
Subjective - Prog Note Date Prog Note Date: 08/07/16 Prog Note Time: 20:11 - Subjective Pt reports feeling: Improved Subjective: Patient lying in bed. Told her to take the kids and go home. Irma still has a significant headache. Thinks it's a tension headache from biting down on the GET from surgery. Feeling better and has ambulated. OB RN dropped off manual breast pump. Hasn't slept all day due to headache. Current Medications - Current Medications Current Medications: Celebrex, tylenol, oxycodone. Objective - Vital Signs/Intake & Output Reviewed Vital Signs: Yes Vital Signs: Vital Signs x48h Temp Pulse Resp BP Pulse Ox 08/07/16 16:00 98.2 F 72 24 98/60 98 08/07/16 15:00 98.6 F 81 16 94/57 L 98 08/07/16 13:00 98.2 F 73 16 110/58 L 99 Intake & Output: Intake & Output 08/04/16 08/05/16 08/06/16 08/07/16 23:59 23:59 23:59 23:59 Intake Total 1703 Output Total 900 Balance 803 - Objective General Appearance: positive: No acute distress (Has color in her face and looking like she has more energy) - Lab Results Fish Bones: 08/07/16 07:11 Other Labs: Lab Results x24hrs 08/07/16 08/07/16 Range/Units 08:00 07:11 WBC 11.1 H (4.8-10.8) x10^3/uL RBC 2.03 L (4.20-5.40) 10^6/uL Hgb 5.0 L* (12.0-16.0) g/dL Hct 15.7 L* (37.0-47.0) % MCV 77.2 L (81.0-99.0) fL MCH 24.5 L (27.0-31.0) pg MCHC 31.7 L (32.0-36.0) g/dL RDW 17.5 H (12.0-15.0) % Plt Count 149 (130-450) 10^3/uL MPV 6.9 L (7.9-10.8) fL Neut # 9.8 H (1.5-6.6) 10^3/uL Lymph # 1.0 L (1.5-3.5) 10^3/uL [place] # 0.3 (0.0-1.0) 10^3/uL Eos # 0.0 (0.0-0.7) 10^3/uL Baso # 0.0 (0.0-0.1) 10^3/uL Absolute Nucleated RBC 0.00 x10^3/uL Nucleated RBCs 0.0 /100WBC Manual Slide Review Indicated Platelet Estimate NORMAL (130-450,000) (NORMAL) Platelet Morphology NORMAL APPEARANCE (NORMAL) RBC Morph Micro Appear 1+ HYPOCHROMASIA (NORMAL) Blood Type O POSITIVE Antibody Screen NEGATIVE Crossmatch IS Only See Detail Assessment/Plan - Problem List (1) Vaginal bleeding Impression: 31 yo S/p S/p suction dilation and curettage 08/06/2016 for retained products of conception Post-op hemorrhage due to uterine atony, improved Getting 3rd unit of PRBC and will receive a total of 4 D/W patient plan to transfuse all the blood and recheck CBC in AM. Likely to discharge home in AM. Patient OK with this plan. Tension DHILLON-- one time dose toradol (patient on Celebrex 200 mg BID) and muscle relaxant as well. Yaakovien PRN.
[2016-08-07] MEDS ORDERED: ZOLPIDEM 5 MG TABLET PO PRN (20:19)
[2016-08-07] MEDS ORDERED: CYCLOBENZAPRINE 10 MG TABLET PO PRN (20:19)
[2016-08-07] MEDS ORDERED: KETOROLAC 30 MG/ML VIAL IVP SCH (21:00)
[2016-08-08] MEDS: AMPICILLIN 2 GM in SODIUM CHLORIDE 0.9% MINIBAG 100 ML IV SCH ×2 (00:42→05:50)
[2016-08-08] MEDS: ACETAMINOPHEN 500 MG TABLET PO SCH ×2 (01:55→11:32)
[2016-08-08] MEDS: CHERRY SYRUP 10 ML UDC PO SCH (05:50)
[2016-08-08] MEDS: METHYLERGONOVINE 0.2 MG/ML AMP PO SCH (05:54)
[2016-08-08 07:32] LABS: BASOPHILS % (AUTO) 0.4 %; EOSINOPHILS # (AUTO) 0.1 10^3/uL (0.0-0.7); EOSINOPHILS % (AUTO) 1.5 %; HCT - HEMATOCRIT 28.7 % (37.0-47.0); HGB - HEMOGLOBIN 9.8 g/dL (12.0-16.0); LYMPHOCYTES # (AUTO) 3.2 10^3/uL (1.5-3.5); MEAN CORPUSCULAR HEMOGLOBIN 28.7 pg (27.0-31.0); MEAN CORPUSCULAR HGB CONC 34.1 g/dL (32.0-36.0); MEAN CORPUSCULAR VOLUME 84.2 fL (81.0-99.0); MEAN PLATELET VOLUME 7.5 fL (7.9-10.8); MONOCYTES # (AUTO) 0.5 10^3/uL (0.0-1.0); MONOCYTES % (AUTO) 7.8 %; NEUTROPHILS # (AUTO) 2.7 10^3/uL (1.5-6.6); NEUTROPHILS % (AUTO) 41.3 %; RED BLOOD COUNT 3.41 10^6/uL (4.20-5.40); RED CELL DISTRIBUTION WIDTH 16.4 % (12.0-15.0); UNCORRECTED WHITE BLOOD COUNT 6.6 x10^3/uL; WHITE BLOOD COUNT 6.6 x10^3/uL (4.8-10.8)
[2016-08-08] MEDS: LACTATED RINGERS 1,000 ML IV SCH ×3 (07:38→11:32)
[2016-08-08] MEDS: SERTRALINE 50 MG TABLET PO SCH (08:12)
[2016-08-08] MEDS: DOCUSATE SODIUM 100 MG CAPSULE PO SCH (08:12)
[2016-08-08] MEDS: CELECOXIB 100 MG CAPSULE PO SCH (08:12)
[2016-08-08 08:42] VITALS: BP 109/71
--- NOTE | 2016-08-08 10:16 | PROVIDER PROGRESS NOTE ---
Subjective - Prog Note Date Prog Note Date: 08/08/16 Prog Note Time: 10:12 - Subjective Pt reports feeling: Improved Subjective: Patient sitting in bed. Feeling much better. Was able to sleep last night. Thinks the Flexeril stopped her headache (and also made her sleep). Woke up with breasts engorged; used manual breast pump. Desires to go home. Bleeding light. No nausea, vomiting, fevers or chills. Objective - Vital Signs/Intake & Output Vital Signs: Vital Signs x48h Temp Pulse Resp BP Pulse Ox 08/08/16 08:41 98.4 F 82 16 109/71 96 08/08/16 05:00 98.2 F 83 16 104/67 95 Intake & Output: Intake & Output 08/05/16 08/06/16 08/07/16 08/08/16 23:59 23:59 23:59 23:59 Intake Total 500 985 Output Total 250 300 Balance 250 685 - Objective General Appearance: positive: No acute distress Eyes Bilateral: positive: Normal inspection Abdomen: positive: Non-tender Neurologic/Psychiatric: positive: Oriented x3, Mood/affect nml - Lab Results Fish Bones: 08/08/16 07:17 Other Labs: Lab Results x24hrs 08/08/16 Range/Units 07:17 WBC 6.6 (4.8-10.8) x10^3/uL RBC 3.41 L (4.20-5.40) 10^6/uL Hgb 9.8 L (12.0-16.0) g/dL Hct 28.7 L (37.0-47.0) % MCV 84.2 (81.0-99.0) fL MCH 28.7 (27.0-31.0) pg MCHC 34.1 (32.0-36.0) g/dL RDW 16.4 H (12.0-15.0) % Plt Count 105 L (130-450) 10^3/uL MPV 7.5 L (7.9-10.8) fL Neut # 2.7 (1.5-6.6) 10^3/uL Lymph # 3.2 (1.5-3.5) 10^3/uL [place] # 0.5 (0.0-1.0) 10^3/uL Eos # 0.1 (0.0-0.7) 10^3/uL Baso # 0.0 (0.0-0.1) 10^3/uL Absolute Nucleated RBC 0.00 x10^3/uL Nucleated RBCs 0.0 /100WBC Assessment/Plan - Problem List (1) Vaginal bleeding Impression: 31 yo S/p 07/25/2016 S/p suction dilation and curettage 08/06/2016 S/p hemorrhage 2ndy to uterine atony S/p transfusion of 4 units PRBC Normal recovery with appropriate Hgb rise Resolved headache Discharge to home Rx for vicodin, ibuprofen, flexeril Continue home medication of zoloft Follow up with me in 2 weeks Call if worsening fevers, chills, abdominal pain or vaginal bleeding No lifting > 10 lbs Discharge Plan Disposition: 01 Home, Self Care Condition: Good Diet: Regular Activity Restrictions: Activity as Tolerated Shower Restrictions: No Driving Restrictions: Yes (Do not drive whild on hydrocodone) Weight Bearing: Full Weight No Smoking: If you smoke, Please STOP! Call for help.
--- NOTE | 2016-08-08 13:27 | DISCHARGE SUMMARY ---
DATE OF ADMISSION: 08/06/2016 DATE OF DISCHARGE: 08/08/2016 DIAGNOSES ON ADMISSION 1. A 31-year-old G2, P2-0-0-2. 2. Status post spontaneous vaginal delivery on 07/25/2016. 3. Retained products of conception. DIAGNOSES ON DISCHARGE 1. A 31-year-old G2, P2-0-0-2. 2. Status post spontaneous vaginal delivery on 07/25/2016. 3. Status post suction dilatation and curettage on 08/06/2016. 4. Status post postoperative hemorrhage on 08/06/2016 secondary to uterine atony. 5. Status post transfusion of 4 units of packed red blood cells 08/07/2016. BRIEF HISTORY: This is a patient of [facility] who recently delivered her son, Jasson, on 07/25/2016. It was a vaginal delivery with no reported complications. The patient, however, began to have worsening vaginal bleeding and abdominal pain. She also noticed foul-smelling lochia. The patient went to the emergency department and was worked up by Dr. Jenny De Guzman. An ultrasound revealed that the patient did have retained products of conception. The patient underwent a suction dilatation and curettage. There was quite a lot of bleeding noted at the time of surgery with the EBL of 700 mL. It appeared that the bleeding was due to uterine atony. The patient did have some heavier vaginal bleeding after surgery, which was controlled with sublingual Cytotec. In recovery, however, the patient had an episode of syncope. Her vitals showed that she was hypotensive, and her hemoglobin dropped from an immediate postop hemoglobin of 9.8 to 8.2. The patient was then further monitored in the hospital. A repeat hemoglobin showed that it had dropped further to 5.0. The patient was given a transfusion of 4 units of packed red blood cells. She was also noted to have a significant tension headache, and this was resolved with Flexeril. On postoperative day #2, the patient was feeling much better. Her headache has resolved and she is able to ambulate, tolerate a regular diet, and urinate without difficulty. She has been using a manual pump while she has been in the hospital. The patient's hemoglobin has improved to 9.8. On examination, her bleeding is mild and her pain is controlled. She had been receiving ampicillin for endometritis prophylaxis and Methergine to minimize any vaginal bleeding. She will be discharged home today on postoperative day #2 with prescriptions for Vicodin, ibuprofen and Flexeril. The patient is to continue her home medication of Zoloft 100 mg 1 tab p.o. daily. The patient is to see me at [facility] in 2 weeks for routine postoperative visit. She has been instructed to call me should she have any worsening fevers, chills, abdominal pain, or vaginal bleeding. JOB #: [id number] EXT JOB #:[id number] MTDD
== END 2016-08-08 11:53 | disposition home or self-care (01) | DRG 769 ==
LOC: ED 16:28 → SDS 18:13 → MS 22:30 → SDS 08-07 01:51 → OBSVTOIN 08-07 20:17 → MS 08-07 22:00
PROVIDERS: ADMIT Obstetrics & Gynecology; ATTEND Obstetrics & Gynecology
PROC: 10D17ZZ Extraction of Products of Conception, Retained, Via Natural or Artificial Opening (ICD-10-PCS; principal; 2016-08-07)
DX: O72.2 Delayed and secondary postpartum hemorrhage (principal); N99.820 Postprocedural hemorrhage of a genitourinary system organ or structure following a genitourinary system procedure; D62 Acute posthemorrhagic anemia; G44.209 Tension-type headache, unspecified, not intractable; F41.9 Anxiety disorder, unspecified; Z87.891 Personal history of nicotine dependence
CPT/HCPCS: 36415; 36430; 76856; 81001; 81003; 85014; 85018; 85025; 86850; 86900; 86901; 86920; 87086; 88305; 96365; 96366; 99283; 99284

== ENCOUNTER 2016-08-16 08:00 | Outpatient (CLI) | payer OTHER | END 2016-08-16 23:59 | disposition home or self-care (01) | LOC: LAB.R 08:00 | PROVIDERS: ATTEND Obstetrics & Gynecology | DX: N76.0 Acute vaginitis (principal) | CPT/HCPCS: 87480; 87510; 87660 ==

== ENCOUNTER 2016-09-10 06:49 | Outpatient (CLI) | payer OTHER | END 2016-09-10 06:50 | disposition critical access hospital (66) | LOC: EMS 06:49 | PROVIDERS: ATTEND Surgery | DX: R06.00 Dyspnea, unspecified (principal); R07.9 Chest pain, unspecified; R05 Cough | CPT/HCPCS: A0425; A0427 ==

== ENCOUNTER 2016-09-10 07:03 | Emergency (ER) | payer OTHER ==
[2016-09-10] MEDS ORDERED: ALBUTEROL NEB 2.5 MG/3 ML INH STA (07:23)
[2016-09-10] MEDS ORDERED: SODIUM CHLORIDE 0.9% 1,000 ML IV ONE (07:23)
[2016-09-10] MEDS ORDERED: methylPREDNISolone SUCCINATE 125 MG/2 ML VIAL IVP STA (07:24)
[2016-09-10] MEDS ORDERED: MAGNESIUM SULFATE 1 GM/2 ML VIAL IVP STA (07:24)
[2016-09-10] MEDS ORDERED: methylPREDNISolone SUCCINATE 125 MG/2 ML VIAL IVP ONE (07:27)
[2016-09-10] MEDS ORDERED: MAGNESIUM SULFATE 2 GRAM 50 ML IV ONE ×2 (07:28→07:55)
[2016-09-10] MEDS ORDERED: ALBUTEROL NEB 2.5 MG/3 ML INH ONE (07:30)
[2016-09-10 07:45] LABS: BASOPHILS % (AUTO) 0.1 %; EOSINOPHILS # (AUTO) 0.2 10^3/uL (0.0-0.7); HCT - HEMATOCRIT 41.2 % (37.0-47.0); HGB - HEMOGLOBIN 13.8 g/dL (12.0-16.0); LYMPHOCYTES # (AUTO) 0.4 10^3/uL (1.5-3.5); LYMPHOCYTES % (AUTO) 4.2 %; MEAN CORPUSCULAR HGB CONC 33.5 g/dL (32.0-36.0); MEAN CORPUSCULAR VOLUME 83.7 fL (81.0-99.0); MEAN PLATELET VOLUME 8.3 fL (7.9-10.8); MONOCYTES # (AUTO) 0.3 10^3/uL (0.0-1.0); MONOCYTES % (AUTO) 2.9 %; NEUTROPHILS # (AUTO) 9.2 10^3/uL (1.5-6.6); NEUTROPHILS % (AUTO) 90.8 %; NUCLEATED RED BLOOD CELLS AUTO 0.1 /100WBC; RED BLOOD COUNT 4.93 10^6/uL (4.20-5.40); RED CELL DISTRIBUTION WIDTH 17.1 % (12.0-15.0); UNCORRECTED WHITE BLOOD COUNT 10.2 x10^3/uL; WHITE BLOOD COUNT 10.2 x10^3/uL (4.8-10.8)
[2016-09-10 07:53] LABS: CALCIUM 8.8 mg/dL (8.5-10.3); CREATININE 0.6 mg/dL (0.4-1.0); POTASSIUM 3.6 mmol/L (3.5-5.0)
--- NOTE | 2016-09-10 08:23 | ED Physician Documentation ---
History of Present Illness - Stated complaint Stated Complaint: SOA - Chief complaint Chief Complaint: Resp - Additonal information Additional information: Patient is a 31-year-old female who is really for the most part healthy. She does not have any significant past medical history. She is here with a complaint of 5 days of occasional low-grade fevers, chills and a mild nonproductive cough. She also has ear nose and throat symptoms. She is currently breast-feeding. She presents today with worse difficulty in breathing and has heard wheezing. She has no history of asthma but has wheezed on occasion in the past when she gets ill. She is a non-smoker. Review of systems: For pertinent positive and negative questions for the review of systems please see history of present illness. Otherwise all other systems have been reviewed and are negative. Dragon disclaimer: Parts of this medical record were created using voice recognition technology. Because of the inherent limitations of this system occasional same sounding word substitutions do occur and persist despite proofreading. Please read the document for context. 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 : None HEENT: None Psych: Depression Musculoskeletal: None Derm: None - Past Surgical History Past Surgical History: No - Present Medications Home Medications: Ambulatory Orders Medication Instructions Recorded Confirmed Sertraline HCl [Sertraline HCl] 100 mg PO DAILY 08/06/16 09/10/16 Albuterol Sulf [Ventolin Hfa 1 - 2 puffs INH Q4HR PRN #1 inhaler 09/10/16 Inhaler] Prednisone 40 mg PO DAILY #8 tablet 09/10/16 - Allergies Allergies/Adverse Reactions: Allergies Allergy/AdvReac Type Severity Reaction Status Date / Time No Known Drug Allergies Allergy Verified 08/06/16 16:36 - Social History Does the pt smoke?: No Smoking Status: Never smoker Does the pt drink ETOH?: No Does the pt have substance abuse?: No - Immunizations Immunizations are current?: Yes - POLST Patient has POLST: No PD ED PE NORMAL - Vitals Vital signs reviewed: Yes - General General: Alert and oriented X 3, No acute distress, Other - HEENT HEENT: Atraumatic, PERRL, EOMI, Ears normal, Moist mucous membranes, Pharynx benign - Neck Neck: Supple, no meningeal sign - Cardiac Cardiac: RRR, No murmur, No gallop, No rub - Respiratory Respiratory: No respiratory distress, Other (Mild expiratory wheezing bilaterally) - Abdomen Abdomen: Normal bowel sounds, Soft, Non tender, Non distended - Extremities Extremities: No deformity, No tenderness to palpate, No edema, No calf tenderness / cord - Neuro Neuro: Alert and oriented X 3, No motor deficit, No sensory deficit - Psych Psych: Normal mood, Normal affect Results - Vitals Vitals: Vital Signs - 24 hr 09/10/16 09/10/16 09/10/16 07:08 07:50 08:30 Temperature 3.1 C L Heart Rate 86 108 H 88 Respiratory 18 18 20 Rate Blood Pressure 147/86 H 108/70 O2 Saturation 95 95 Oxygen O2 Source Room air - Labs Labs: Laboratory Tests 09/10/16 09/10/16 09/10/16 07:40 07:40 10:04 WBC 10.2 RBC 4.93 Hgb 13.8 Hct 41.2 MCV 83.7 MCH 28.0 MCHC 33.5 RDW 17.1 H Plt Count 179 MPV 8.3 Neut # 9.2 H Lymph # 0.4 L Perry # 0.3 Eos # 0.2 Baso # 0.0 Absolute Nucleated RBC 0.01 Nucleated RBCs 0.1 Sodium 139 Potassium 3.6 Chloride 104 Carbon Dioxide 26 Anion Gap 9.0 BUN 11 Creatinine 0.6 Estimated GFR (MDRD) 118 Glucose 95 Calcium 8.8 Urine Color YELLOW Urine Clarity CLEAR Urine pH 6.0 Ur Specific [place] 1.020 Urine Protein NEGATIVE Urine Glucose (UA) NEGATIVE Urine Ketones 15 H Urine Occult Blood NEGATIVE Urine Nitrite NEGATIVE Urine Bilirubin NEGATIVE Urine Urobilinogen 0.2 (NORMAL) Ur Leukocyte Esterase NEGATIVE Ur Microscopic Review NOT INDICATED Urine Culture Comments NOT INDICATED Urine HCG, Qual NEGATIVE PD MEDICAL DECISION MAKING - ED course ED course: Patient is a pleasant young female who presents with cough, congestion, and wheezing for a week. On initial examination she has mild end expiratory wheezes bilaterally. Chest x-ray shows no acute intrathoracic disease. EKG shows normal sinus rhythm with a normal [place] QRS and QT interval without ST segment elevation depression or T-wave inversion overall to normal EKG. The sinus tachycardia present initially has resolved. She is given Solu-Medrol magnesium albuterol and looks and feels better there are no laboratory abnormalities I think this patient has a simple bronchitis and bronchospasm. Disposition: To home Clinical impression: 1. Acute bronchitis with bronchospasm Departure - Departure Disposition: Home, Self Care Clinical Impression: Bronchitis Condition: Good Instructions: ED Upper Resp Infec No Abx Tx, ED Bronchitis Asthmatic Ch Prescriptions: Albuterol Sulf [Ventolin Hfa Inhaler] 1 - 2 puffs INH Q4HR PRN #1 inhaler PRN Reason: Shortness Of Air/Wheezing Prednisone 40 mg PO DAILY #8 tablet
--- NOTE | 2016-09-10 09:10 | XRAY Preliminary Report ---
Exam: XR Chest 2 View PA/LAT IMPRESSION: Normal 2-view chest radiography. [facility] SITE ID: [id number]
--- NOTE | 2016-09-10 09:13 | XRAY Report ---
EXAM: CHEST RADIOGRAPHY EXAM DATE: 09/10/2016 08:35 AM. CLINICAL HISTORY: Cough with worsening short of breath. COMPARISON: Chest x-ray 07/24/2015. TECHNIQUE: 2 views. FINDINGS: Lungs/Pleura: No focal opacities evident. No pleural effusion. No pneumothorax. Normal volumes. Mediastinum: Heart and mediastinal contours are unremarkable. Other: None. IMPRESSION: Normal 2-view chest radiography. [facility] Referring Provider Line: [phone] SITE ID: [id number]
[2016-09-10 10:12] LABS: BILIRUBIN,URINE NEGATIVE (NEGATIVE)
[2016-09-10 10:15] LABS: HCG UR QUAL NEGATIVE; UA CHARGE (STRIP ONLY) YES; UR CULTURE IF IND NOT INDICATED
[2016-09-10 11:01] VITALS: BP 100/58
== END 2016-09-10 10:40 | disposition home or self-care (01) ==
LOC: EDUNIT# → ED 07:03
DX: J20.9 Acute bronchitis, unspecified (principal); R00.0 Tachycardia, unspecified; I45.81 Long QT syndrome
CPT/HCPCS: 36415; 71020; 80048; 81003; 81025; 85025; 93005; 94640; 96374; 96375; 99284; J7613; 81001; 87086

== ENCOUNTER 2016-09-13 14:33 | Emergency (ER) | payer OTHER ==
[2016-09-13 15:17] LABS: BILIRUBIN,URINE NEGATIVE (NEGATIVE); PH,URINE 7.5 PH (5.0-7.5)
[2016-09-13 15:20] LABS: HCG UR QUAL NEGATIVE; UA w/ MICROSCOPIC CHARGE YES
[2016-09-13 15:26] LABS: WBC,URINE 0-3 /HPF (0-5)
[2016-09-13 15:27] LABS: UR CULTURE IF IND NOT INDICATED
--- NOTE | 2016-09-13 17:15 | Ultrasound Preliminary Report ---
Exam: US Pelvic Complete - Non OB IMPRESSION: 1. 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 2. Normal ovaries. [facility] SITE ID: [id number]
--- NOTE | 2016-09-13 17:30 | Ultrasound Report ---
REVISED: THIS REPORT WAS ORIGINALLY SIGNED ON 09/13/2016 @ 1730. ORDERS LINKED ON 09/24/2016. EXAM: PELVIC ULTRASOUND EXAM DATE: 09/13/2016 04:37 PM. CLINICAL HISTORY: 2 months , persistent vaginal bleeding. D and C one month ago. COMPARISON: 08/06/2016. TECHNIQUE: Realtime transabdominal pelvic scan performed to identify the uterus and adnexa and as an overview of other pelvic structures, followed by transvaginal scan to provide greater detail of the uterus and adnexa, with static image documentation. FINDINGS: Uterus: 8.4 x 6.5 x 6.9 cm, volume 197 cc. Anteverted position. Enlarged. Whereas previously the abnormal large bubbly complex findings were limited to the endometrial echo cavity and cervix, at this time, not only has the amount of this abnormality increased within endometrial cavity but also appears to extend into the posterior uterine fundus, within 6 mm of the serosa. No vascularity within this region. The anterior margins of this abnormality also appear ill-defined. Cervix: Small amount of simple fluid within the endocervical canal. Right Ovary: 2.0 x 1.7 x 1.4 cm, volume 2.5 cc. Normal echotexture and blood flow. Left Ovary: 3.1 x 1.3 x 2.1 cm, volume 4.4 cc. Normal echotexture and blood flow. Free Fluid: None. Other: None. IMPRESSION: 1. 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 2. Normal ovaries. [facility] Referring Provider Line: [phone] SITE ID: [id number] MTDD
[2016-09-13 18:59] VITALS: BP 113/74
--- NOTE | 2016-09-18 02:53 | ED Physician Documentation ---
History of Present Illness - Stated complaint Stated Complaint: FEMALE - Chief complaint Chief Complaint: Abd Pain - Treatment prior to arrival Treatment prior to arrival: Patient is a 31-year-old 2 para 2 female who presents with a complaint of small amount of bleeding and clots. This patient was seen a couple days earlier by me with a complaint of bronchitic symptoms. At that point she had no complaints of bleeding. This patient gave at the end of July and she requiredA D&C in early August including a blood transfusion for acute anemia. She has not had any problems until earlier today. She does report that she has had persistent mild spotting ever since the D&C but now has developed heavier vaginal bleeding clots. She has no systemic complaints such as weakness, fever , chills, malodorous lochia or abdominal pain. Review of systems: For pertinent positive and negatives in the review of systems please see history of present illness. Otherwise all other systems have been reviewed and are negative. Dragon disclaimer: Parts of this medical record were created using voice recognition technology. Because of the inherent limitations of this system occasional same sounding word substitutions do occur and persist despite proofreading. Please read the document for context. 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 : None HEENT: None Psych: Depression Musculoskeletal: None Derm: None - Past Surgical History Past Surgical History: No - Present Medications Home Medications: Ambulatory Orders Medication Instructions Recorded Confirmed Sertraline HCl [Sertraline HCl] 100 mg PO DAILY 08/06/16 09/13/16 HYDROcod/ACETAM 5/325 [[place] 5/325] 1 tab PO Q6H PRN #15 tablet 09/15/16 - Allergies Allergies/Adverse Reactions: Allergies Allergy/AdvReac Type Severity Reaction Status Date / Time No Known Drug Allergies Allergy Verified 08/06/16 16:36 - Social History Does the pt smoke?: No Smoking Status: Never smoker Does the pt drink ETOH?: No Does the pt have substance abuse?: No - Immunizations Immunizations are current?: Yes - POLST Patient has POLST: No PD ED PE NORMAL - General General: Alert and oriented X 3, No acute distress, Well developed/nourished - HEENT HEENT: Atraumatic, PERRL, EOMI - Neck Neck: Supple, no meningeal sign, No bony TTP - Cardiac Cardiac: RRR, No gallop - Respiratory Respiratory: No respiratory distress, Clear bilaterally - Abdomen Abdomen: Normal bowel sounds, Soft - Female Female : Garbage Collection Supervisor present, Other (Speculum examination was done there is a small amount of blood in the small clots in the posterior fornix of the vagina. There is no obvious lacerations lesions or tears. There is no brisk bleeding , the uterus was slightly tender and slightly increased in size.) Results - Vitals Vitals: Oxygen O2 Source Room air - Labs Labs: Laboratory Tests 09/13/16 14:49 Urine Color LT RED Urine Clarity CLEAR Urine pH 7.5 Ur Specific [place] 1.020 Urine Protein 30 H Urine Glucose (UA) NEGATIVE Urine Ketones TRACE Urine Occult Blood LARGE H Urine Nitrite NEGATIVE Urine Bilirubin NEGATIVE Urine Urobilinogen 0.2 (NORMAL) Ur Leukocyte Esterase NEGATIVE Urine RBC TNTC H Urine WBC 0-3 Ur Squamous Epith Cells FEW Squamous Urine Bacteria Few Ur Microscopic Review INDICATED Urine Culture Comments NOT INDICATED Urine HCG, Qual NEGATIVE PD MEDICAL DECISION MAKING - ED course ED course: This patient presents with vaginal bleeding. She had a D&C recently for retained products of conception. She is 2 para 2 recently gave at the end of July. She has had persistent spotting ever since a D&C but had the onset of more heavy bleeding with a few clots starting this morning. On examination she looks well she is not febrile or tachycardic. She is not obviously anemic. Genitourinary examination shows small amount of blood coming from the office. This is darkish blood in her is one small clots in the posterior pharynx.. This is mildly tender and increase in size but there is no malodorous lochia that might suggest endometritis. Patient's urinary hCG was normal. An ultrasound was done to assess whether she had persistent clots or retained products and the reading of this ultrasound suggested some concern for trophoblastic disease. This was communicated to Dr. Rinaldi who knows the patient well. We both felt that she is probably low risk for this disorder given the recent . The patient continued to do well and plan for follow-up for the next morning was made with Dr. Rinaldi. Patient was advised to return to the emergency department should her bleeding worsen or she develop any other concerning signs or symptoms. I disposition to home follow-up with Dr. Rinaldi Clinical impression: 1. Persistent bleeding post D&C with interval increase of vaginal bleeding today 2. Ultrasound read mentions concern for trophoblastic disease, Departure - Departure Disposition: 01 Home, Self Care Clinical Impression: Vaginal bleeding, abnormal Condition: Good Instructions: ED Bleed Irregular Vaginal Follow-Up: Roya Walton DO [Provider Admit Priv/Credential] - Comments: See Dr. Rinaldi tomorrow Discharge Date/Time: 09/13/16 19:00
== END 2016-09-13 19:00 | disposition home or self-care (01) ==
LOC: ED 14:33
DX: N93.9 Abnormal uterine and vaginal bleeding, unspecified (principal)
CPT/HCPCS: 76830; 76856; 81001; 81003; 81025; 87086; 99283

== ENCOUNTER 2016-09-14 12:08 | Outpatient (CLI) | payer OTHER ==
[2016-09-14 12:50] LABS: HCT - HEMATOCRIT 39.9 % (37.0-47.0); HGB - HEMOGLOBIN 13.2 g/dL (12.0-16.0); MEAN CORPUSCULAR HEMOGLOBIN 27.6 pg (27.0-31.0); MEAN CORPUSCULAR VOLUME 83.5 fL (81.0-99.0); MEAN PLATELET VOLUME 8.1 fL (7.9-10.8); RED BLOOD COUNT 4.78 10^6/uL (4.20-5.40); RED CELL DISTRIBUTION WIDTH 16.7 % (12.0-15.0); WHITE BLOOD COUNT 8.4 x10^3/uL (4.8-10.8)
[2016-09-14 13:20] LABS: ALBUMIN/GLOBULIN RATIO 1.4 (1.0-2.2); CALCIUM 9.1 mg/dL (8.5-10.3); CREATININE 0.6 mg/dL (0.4-1.0); POTASSIUM 3.3 mmol/L (3.5-5.0); TOTAL PROTEIN 7.1 g/dL (6.7-8.2)
[2016-09-14 14:32] LABS: THYROID STIMULATING HORMONE 0.8 uIU/mL (0.34-5.60)
== END 2016-09-14 12:09 | disposition home or self-care (01) ==
LOC: LAB 12:08
PROVIDERS: ATTEND Obstetrics & Gynecology
DX: O72.2 Delayed and secondary postpartum hemorrhage (principal)
CPT/HCPCS: 36415; 71020; 80053; 84439; 84443; 84702

== ENCOUNTER 2016-09-14 12:48 | Outpatient (CLI) | payer OTHER ==
--- NOTE | 2016-09-14 19:01 | XRAY Report ---
TWO-VIEW CHEST: 09/14/2016 CLINICAL INDICATION: Delayed hemorrhage. COMPARISON: 09/10/2016 FINDINGS: Frontal and lateral views of the chest demonstrate a normal cardiac silhouette. The lungs remain clear. No effusion or pneumothorax is present. IMPRESSION: NORMAL CHEST, UNCHANGED. JOB #: [id number] EXT JOB #:[id number]
== END 2016-09-14 12:49 | disposition home or self-care (01) ==
LOC: DI 12:48
PROVIDERS: ATTEND Obstetrics & Gynecology
DX: O72.2 Delayed and secondary postpartum hemorrhage (principal)
CPT/HCPCS: 71020

== ENCOUNTER 2016-09-15 15:49 | Emergency (ER) | payer OTHER ==
--- NOTE | 2016-09-15 16:49 | ED Physician Documentation ---
PD HPI FEMALE - Stated complaint Stated Complaint: FEM - Chief complaint Chief Complaint: Abd Pain - History obtained from History obtained from: Patient - History of Present Illness Timing - onset: How many weeks ago (she had delivery of child July 25 and had post- bleeding since that time. Had D&C for apparent retained products on U/S and with still some level of quant. Had significant bleeding with the D&C and has thin myometrium. Has been getting referral to and it should be through this week coming. Had U/S 2 days ago with still some likely small amount of tissue. CBC was good yesterday with Hgb 13. She is not having worse bleeding, but less and is having more clots pass and marked cramping uterus.) Timing - details: Gradual onset, Waxing and waning Associated symptoms: Pelvic pain, Vaginal bleeding. No: Fever, Abdominal pain, Back pain, Vaginal discharge, Dysuria, Urinary frequency Contributing factors: No: Recently seen: Clinic (yesterday) Review of Systems Constitutional: denies: Fever, Chills GI: denies: Vomiting, Diarrhea : reports: Vaginal bleeding. 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 : None HEENT: None Psych: Depression Musculoskeletal: None Derm: None - Past Surgical History Past Surgical History: No - Present Medications Home Medications: Ambulatory Orders Medication Instructions Recorded Confirmed Sertraline HCl [Sertraline HCl] 100 mg PO DAILY 08/06/16 09/13/16 HYDROcod/ACETAM 5/325 [[place] 5/325] 1 tab PO Q6H PRN #15 tablet 09/15/16 - Allergies Allergies/Adverse Reactions: Allergies Allergy/AdvReac Type Severity Reaction Status Date / Time No Known Drug Allergies Allergy Verified 08/06/16 16:36 - Social History Does the pt smoke?: No Smoking Status: Never smoker Does the pt drink ETOH?: No Does the pt have substance abuse?: No - Immunizations Immunizations are current?: Yes - POLST Patient has POLST: No PD ED PE NORMAL - Vitals Vital signs reviewed: Yes - General General: Alert and oriented X 3, No acute distress, Well developed/nourished - Cardiac Cardiac: RRR, No murmur - Respiratory Respiratory: Clear bilaterally - Abdomen Abdomen: Normal bowel sounds, Soft, Non distended, Other (tender suprapubic area without guarding) - Female Female : Deferred - Rectal Rectal: Deferred - Back Back: No CVA TTP - Derm Derm: Normal color, Warm and dry Results - Vitals Vitals: Oxygen O2 Source Room air PD MEDICAL DECISION MAKING - ED course Complexity details: reviewed old records, reviewed results, considered differential, d/w patient, d/w [employer] sales consultant (Dr. Arce) Departure - Departure Disposition: Home, Self Care Clinical Impression: Vaginal bleeding, abnormal, Uterine cramping Condition: Stable Record reviewed to determine appropriate education?: Yes Instructions: ED Bleed Irregular Vaginal Follow-Up: Luís Arce MD [Provider Admit Priv/Credential] - Prescriptions: HYDROcod/ACETAM 5/325 [[place] 5/325] 1 tab PO Q6H PRN #15 tablet PRN Reason: Pain Comments: Drink lots of fluids. Tylenol 650 mg 4 times daily. Add Hydrocodone as needed for pains. Follow up CHERRY GROWER Saturday. Return to ED if worsening. Discharge Date/Time: 09/15/16 17:47
[2016-09-15] MEDS ORDERED: HYDROcod/ACETAM 5/325 MG TABLET PO STA (17:19)
[2016-09-15] MEDS ORDERED: HYDROcod/ACETAM 5/325 MG TABLET ONE (17:30)
[2016-09-15 17:37] VITALS: BP 127/87
== END 2016-09-15 17:47 | disposition home or self-care (01) ==
LOC: ED 15:49
DX: N93.9 Abnormal uterine and vaginal bleeding, unspecified (principal); R10.2 Pelvic and perineal pain
CPT/HCPCS: 99283; A9270

== ENCOUNTER 2017-01-22 08:00 | Outpatient (CLI) | payer OTHER ==
[2017-01-22 12:49] LABS: BASOPHILS % (AUTO) 0.1 %; EOSINOPHILS # (AUTO) 0.1 10^3/uL (0.0-0.7); EOSINOPHILS % (AUTO) 1.1 %; HCT - HEMATOCRIT 42.1 % (37.0-47.0); HGB - HEMOGLOBIN 13.9 g/dL (12.0-16.0); LYMPHOCYTES # (AUTO) 0.8 10^3/uL (1.5-3.5); LYMPHOCYTES % (AUTO) 10.4 %; MEAN CORPUSCULAR HEMOGLOBIN 27.1 pg (27.0-31.0); MEAN CORPUSCULAR HGB CONC 33.1 g/dL (32.0-36.0); MEAN CORPUSCULAR VOLUME 81.8 fL (81.0-99.0); MEAN PLATELET VOLUME 9.1 fL (7.9-10.8); MONOCYTES # (AUTO) 0.2 10^3/uL (0.0-1.0); MONOCYTES % (AUTO) 2.5 %; NEUTROPHILS % (AUTO) 85.9 %; RED BLOOD COUNT 5.15 10^6/uL (4.20-5.40); UNCORRECTED WHITE BLOOD COUNT 8.1 x10^3/uL; WHITE BLOOD COUNT 8.1 x10^3/uL (4.8-10.8)
[2017-01-22 12:56] LABS: ALBUMIN/GLOBULIN RATIO 1.4 (1.0-2.2); BILIRUBIN,TOTAL 0.7 mg/dL (0.2-1.0); CALCIUM 8.8 mg/dL (8.5-10.3); CREATININE 0.5 mg/dL (0.4-1.0); POTASSIUM 3.7 mmol/L (3.5-5.0); TOTAL PROTEIN 7.5 g/dL (6.7-8.2)
[2017-01-22 13:06] LABS: H. PYLORI IGG ANTIBODY Negative (Negative); HPYLORI NEG QC Negative (Negative); HPYLORI POS QC POSITIVE (Positive)
== END 2017-01-22 08:01 | disposition home or self-care (01) ==
LOC: LAB.WCP 08:00
PROVIDERS: ATTEND Physician Assistant Medical
DX: R10.31 Right lower quadrant pain (principal)
CPT/HCPCS: 36415; 80053; 83690; 84702; 85025; 87339

== ENCOUNTER 2017-08-31 13:01 | Outpatient (CLI) | payer OTHER | END 2017-08-31 23:59 | disposition critical access hospital (66) | LOC: EMS 13:01 | PROVIDERS: ATTEND Surgery | DX: M54.2 Cervicalgia (principal); R51 Headache; M25.512 Pain in left shoulder; V49.40XA Driver injured in collision with unspecified motor vehicles in traffic accident, initial encounter; Y92.414 Local residential or business street as the place of occurrence of the external cause | CPT/HCPCS: A0425; A0429 ==

== ENCOUNTER 2017-08-31 13:28 | Emergency (ER) | payer OTHER ==
[2017-08-31] MEDS ORDERED: HYDROcod/ACETAM 5/325 MG TABLET PO STA (13:35)
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
[2017-08-31 14:34] VITALS: BP 127/98
== END 2017-08-31 14:49 | disposition home or self-care (01) ==
LOC: EDUNIT# → EDBD → ED 13:28
DX: S16.1XXA Strain of muscle, fascia and tendon at neck level, initial encounter (principal); V43.52XA Car driver injured in collision with other type car in traffic accident, initial encounter; S46.912A Strain of unspecified muscle, fascia and tendon at shoulder and upper arm level, left arm, initial encounter
CPT/HCPCS: 72125; 73030; 99283; A9270

== ENCOUNTER 2021-03-18 08:39 | Outpatient (CLI) | payer OTHER | END 2021-03-18 08:40 | disposition EMS.NT | LOC: EMS 08:39 | DX: Z03.89 Encounter for observation for other suspected diseases and conditions ruled out (principal) ==

== ENCOUNTER 2021-03-23 12:00 | Outpatient (CLI) | payer OTHER | END 2021-03-23 12:01 | disposition critical access hospital (66) | LOC: EMS 12:00 | DX: T50.912A Poisoning by multiple unspecified drugs, medicaments and biological substances, intentional self-harm, initial encounter (principal) | CPT/HCPCS: A0425; A0429 ==

== ENCOUNTER 2021-03-23 12:20 | Observation (INO) | payer OTHER ==
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
[2021-03-23 12:54] LABS: BASOPHILS % (AUTO) 0.3 %; EOSINOPHILS # (AUTO) 0.1 10^3/uL (0.0-0.7); EOSINOPHILS % (AUTO) 3.3 %; HGB - HEMOGLOBIN 14.9 g/dL (12.0-16.0); LYMPHOCYTES # (AUTO) 2.3 10^3/uL (1.5-3.5); LYMPHOCYTES % (AUTO) 70.5 %; MEAN CORPUSCULAR HEMOGLOBIN 29.4 pg (27.0-31.0); MEAN CORPUSCULAR HGB CONC 33.1 g/dL (32.0-36.0); MEAN CORPUSCULAR VOLUME 88.8 fL (81.0-99.0); MEAN PLATELET VOLUME 10.4 fL (7.9-10.8); MONOCYTES # (AUTO) 0.3 10^3/uL (0.0-1.0); MONOCYTES % (AUTO) 7.9 %; PLT - PLATELET COUNT 178 10^3/uL (130-450); RED BLOOD COUNT 5.07 10^6/uL (4.20-5.40); RED CELL DISTRIBUTION WIDTH 13.7 % (12.0-15.0); WHITE BLOOD COUNT 3.3 x10^3/uL (4.8-10.8)
[2021-03-23 12:59] LABS: SLIDE REVIEW? Indicated
[2021-03-23 13:01] LABS: MUDS CUTOFF CONCENTRATIONS CUTOFF CONC BELOW:
[2021-03-23 13:04] LABS: NEUTROPHILS # (AUTO) 0.6 10^3/uL (1.5-6.6)
[2021-03-23 13:13] LABS: BILIRUBIN,URINE NEGATIVE (NEGATIVE); GLUCOSE, URINE (UA) NEGATIVE (NEGATIVE); KETONES,URINE (UA) NEGATIVE (NEGATIVE); LEUKOCYTE ESTERASE, URINE NEGATIVE (NEGATIVE); NITRITE,URINE NEGATIVE (NEGATIVE); OCCULT BLOOD,URINE NEGATIVE (NEGATIVE); PROTEIN,URINE NEGATIVE (NEGATIVE); UROBILINOGEN,URINE 0.2 (NORMAL) E.U./dL (NORMAL)
[2021-03-23 13:14] LABS: CLARITY,URINE CLEAR (CLEAR)
[2021-03-23 13:14] LABS: ALBUMIN 4.4 g/dL (3.2-5.5); ALBUMIN/GLOBULIN RATIO 1.6 (1.0-2.2); ALKALINE PHOSPHATASE 33 IU/L (42-121); ALT ALANINE AMINOTRANSFERASE 16 IU/L (10-60); AST ASPARTATE AMINOTRANSFERASE 21 IU/L (10-42); BILIRUBIN,TOTAL 0.8 mg/dL (0.2-1.0); BUN - BLOOD UREA NITROGEN 9 mg/dL (6-20); CALCIUM 9.1 mg/dL (8.5-10.3); CARBON DIOXIDE - CO2 25 mmol/L (21-32); CHLORIDE 102 mmol/L (101-111); CREATININE 0.6 mg/dL (0.4-1.0); GFR - MDRD 114 (>89); GLUCOSE 108 mg/dL (70-100); LIPASE 36 U/L (22-51); SODIUM 137 mmol/L (135-145); TOTAL PROTEIN 7.1 g/dL (6.7-8.2)
[2021-03-23] MEDS ORDERED: POTASSIUM CHLORIDE 20 MEQ TABLET PO STA (13:15)
[2021-03-23 13:21] LABS: RBC MORPHOLOGY (MULTIPLE) 2+ ANISOCYTOSIS (NORMAL)
[2021-03-23 13:22] LABS: AMPHETAMINE SCREEN,URINE NEGATIVE (NEGATIVE); BARBITURATE SCREEN,UR NEGATIVE (NEGATIVE); BENZODIAZEPINES SCREEN, URINE NEGATIVE (NEGATIVE); COCAINE SCREEN URINE NEGATIVE (NEGATIVE); METHADONE SCREEN, URINE NEGATIVE (NEGATIVE); METHAMPHETAMINES SCREEN, URINE NEGATIVE (NEGATIVE); OPIATE SCREEN, URINE NEGATIVE (NEGATIVE); OXYCODONE SCREEN, URINE NEGATIVE (NEGATIVE); PROPOXYPHENE SCREEN, URINE NEGATIVE (NEGATIVE); THC CANNABINOID SCREEN, URINE POSITIVE (NEGATIVE); TRICYCLIC ANTIDEPRESSANT,URINE NEGATIVE (NEGATIVE)
[2021-03-23 13:28] LABS: ETOH - ETHANOL < 5.0 mg/dL; SALICYLATE < 6.0 mg/dL
[2021-03-23 13:28] LABS: HCG UR QUAL NEGATIVE
[2021-03-23 13:30] LABS: ACETAMINOPHEN 130 ug/mL (10-30)
[2021-03-23] MEDS ORDERED: SODIUM CHLORIDE 0.9% 1,000 ML IV STA (13:46)
[2021-03-23] MEDS ORDERED: ONDANSETRON 4 MG/2 ML VIAL IVP STA ×2 (13:46→15:25)
[2021-03-23 14:27] LABS: B. PARAPERTUSSIS- RESP PCR PAN NOT DETECTED; B. PERTUSSIS- RESP PCR PANEL NOT DETECTED; C. PNEUMONIAE- RESP PCR PANEL NOT DETECTED; CORONAVIRUS 229E-RESP PCR NOT DETECTED; CORONAVIRUS HKU1-RESP PCR NOT DETECTED; CORONAVIRUS NL63-RESP PCR NOT DETECTED; CORONAVIRUS OC43-RESP PCR NOT DETECTED; HUMAN METAPNEUMOVIRUS NOT DETECTED; INFLUENZA A- RESP PCR PANEL NOT DETECTED; INFLUENZA B - RESP PCR PANEL NOT DETECTED; M. PNEUMONIAE- RESP PCR PANEL NOT DETECTED; PARAINFLUENZA VIRUS 1 NOT DETECTED; PARAINFLUENZA VIRUS 2 NOT DETECTED; PARAINFLUENZA VIRUS 3 NOT DETECTED; PARAINFLUENZA VIRUS 4 NOT DETECTED; RHINOVIRUS/ENTEROVIRUS NOT DETECTED; RSV- RESP PCR PANEL NOT DETECTED
[2021-03-23 14:31] LABS: SARS-CoV-2 -RESP PCR PANEL DETECTED
[2021-03-23] MEDS ORDERED: DEXTROSE 5% IV STA (15:23)
[2021-03-23] MEDS ORDERED: DEXTROSE 5% IV ONE ×2 (15:23)
[2021-03-23] MEDS ORDERED: ACETYLCYSTEINE IV STA (15:23)
[2021-03-23] MEDS ORDERED: ACETYLCYSTEINE IV ONE ×2 (15:23)
[2021-03-23] MEDS ORDERED: IBUPROFEN 400 MG TABLET PO PRN (15:41)
[2021-03-23] MEDS ORDERED: SODIUM CHLORIDE FLUSH 0.9% 10 ML SYRINGE IVP PRN (15:41)
[2021-03-23] MEDS ORDERED: ONDANSETRON 4 MG/2 ML VIAL IVP PRN (15:41)
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
[2021-03-23] MEDS ORDERED: LACTATED RINGERS 1,000 ML IV SCH (16:00)
[2021-03-23] MEDS: SODIUM CHLORIDE FLUSH 0.9% 10 ML SYRINGE IVP SCH (18:46)
[2021-03-24] MEDS: SODIUM CHLORIDE FLUSH 0.9% 10 ML SYRINGE IVP SCH ×3 (02:10→21:51)
[2021-03-24 06:23] LABS: BASOPHILS % (AUTO) 0.5 %; EOSINOPHILS # (AUTO) 0.1 10^3/uL (0.0-0.7); EOSINOPHILS % (AUTO) 2.1 %; HCT - HEMATOCRIT 39.1 % (37.0-47.0); HGB - HEMOGLOBIN 13.1 g/dL (12.0-16.0); LYMPHOCYTES # (AUTO) 2.5 10^3/uL (1.5-3.5); MEAN CORPUSCULAR HEMOGLOBIN 29.7 pg (27.0-31.0); MEAN CORPUSCULAR HGB CONC 33.5 g/dL (32.0-36.0); MEAN CORPUSCULAR VOLUME 88.7 fL (81.0-99.0); MEAN PLATELET VOLUME 10.7 fL (7.9-10.8); MONOCYTES # (AUTO) 0.2 10^3/uL (0.0-1.0); MONOCYTES % (AUTO) 5.6 %; NEUTROPHILS # (AUTO) 0.9 10^3/uL (1.5-6.6); NEUTROPHILS % (AUTO) 24.8 %; PLT - PLATELET COUNT 171 10^3/uL (130-450); RED BLOOD COUNT 4.41 10^6/uL (4.20-5.40); RED CELL DISTRIBUTION WIDTH 13.8 % (12.0-15.0); WHITE BLOOD COUNT 3.8 x10^3/uL (4.8-10.8)
[2021-03-24 06:27] LABS: INR 1.3 (0.8-1.2); PT - PROTHROMBIN TIME 14.5 secs (9.9-12.6)
[2021-03-24 06:44] LABS: ACETAMINOPHEN < 10 ug/mL (10-30); ALBUMIN 3.7 g/dL (3.2-5.5); ALKALINE PHOSPHATASE 26 IU/L (42-121); ALT ALANINE AMINOTRANSFERASE 18 IU/L (10-60); AST ASPARTATE AMINOTRANSFERASE 19 IU/L (10-42); BILIRUBIN,DIRECT 0.1 mg/dL (0.1-0.5); BILIRUBIN,TOTAL 0.8 mg/dL (0.2-1.0); BUN - BLOOD UREA NITROGEN < 5 mg/dL (6-20); CALCIUM 8.4 mg/dL (8.5-10.3); CARBON DIOXIDE - CO2 24 mmol/L (21-32); CHLORIDE 109 mmol/L (101-111); CREATININE 0.6 mg/dL (0.4-1.0); GFR - MDRD 114 (>89); GLUCOSE 86 mg/dL (70-100); POTASSIUM 3.4 mmol/L (3.5-5.0); SODIUM 141 mmol/L (135-145); TOTAL PROTEIN 5.7 g/dL (6.7-8.2)
[2021-03-24] MEDS ORDERED: POTASSIUM CHLORIDE 20 MEQ TABLET PO ONE (07:17)
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
[2021-03-24 15:07] LABS: INR 1.3 (0.8-1.2); PT - PROTHROMBIN TIME 14.1 secs (9.9-12.6)
[2021-03-24 15:09] LABS: ACETAMINOPHEN < 10 ug/mL (10-30); ALBUMIN 3.9 g/dL (3.2-5.5); ALKALINE PHOSPHATASE 29 IU/L (42-121); ALT ALANINE AMINOTRANSFERASE 19 IU/L (10-60); AST ASPARTATE AMINOTRANSFERASE 21 IU/L (10-42); BILIRUBIN,DIRECT 0.1 mg/dL (0.1-0.5); BILIRUBIN,TOTAL 0.9 mg/dL (0.2-1.0); TOTAL PROTEIN 6.2 g/dL (6.7-8.2)
[2021-03-24 21:06] LABS: ALBUMIN 3.7 g/dL (3.2-5.5); BILIRUBIN,DIRECT 0.1 mg/dL (0.1-0.5)
[2021-03-24 21:18] LABS: INR 1.3 (0.8-1.2); PT - PROTHROMBIN TIME 14.6 secs (9.9-12.6)
[2021-03-25] MEDS: SODIUM CHLORIDE FLUSH 0.9% 10 ML SYRINGE IVP SCH ×5 (01:01→23:15)
[2021-03-25 05:59] LABS: ALBUMIN 3.7 g/dL (3.2-5.5); ALBUMIN/GLOBULIN RATIO 1.5 (1.0-2.2); CALCIUM 8.9 mg/dL (8.5-10.3); CREATININE 0.6 mg/dL (0.4-1.0); POTASSIUM 3.6 mmol/L (3.5-5.0); TOTAL PROTEIN 6.2 g/dL (6.7-8.2)
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
[2021-03-25] MEDS: ONDANSETRON ODT 4 MG TABLET TL PRN (22:12)
[2021-03-26] MEDS: SODIUM CHLORIDE FLUSH 0.9% 10 ML SYRINGE IVP SCH ×2 (08:08→16:35)
[2021-03-26] MEDS: ONDANSETRON ODT 4 MG TABLET TL PRN ×2 (14:25→20:34)
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
[2021-03-26] MEDS ORDERED: OLANZapine ODT 5 MG TABLET TL PRN (15:35)
[2021-03-26] MEDS: ESCITALOPRAM 10 MG TABLET PO SCH (16:35)
[2021-03-26 17:57] LABS: CORONAVIRUS 229E-RESP PCR NOT DETECTED; CORONAVIRUS HKU1-RESP PCR NOT DETECTED; CORONAVIRUS NL63-RESP PCR NOT DETECTED; CORONAVIRUS OC43-RESP PCR NOT DETECTED; HUMAN METAPNEUMOVIRUS NOT DETECTED; INFLUENZA A- RESP PCR PANEL NOT DETECTED; RHINOVIRUS/ENTEROVIRUS NOT DETECTED
[2021-03-26 17:58] LABS: B. PARAPERTUSSIS- RESP PCR PAN NOT DETECTED; B. PERTUSSIS- RESP PCR PANEL NOT DETECTED; C. PNEUMONIAE- RESP PCR PANEL NOT DETECTED; INFLUENZA B - RESP PCR PANEL NOT DETECTED; M. PNEUMONIAE- RESP PCR PANEL NOT DETECTED; PARAINFLUENZA VIRUS 1 NOT DETECTED; PARAINFLUENZA VIRUS 2 NOT DETECTED; PARAINFLUENZA VIRUS 3 NOT DETECTED; PARAINFLUENZA VIRUS 4 NOT DETECTED; RSV- RESP PCR PANEL NOT DETECTED
[2021-03-26 18:01] LABS: SARS-CoV-2 -RESP PCR PANEL DETECTED
[2021-03-27] MEDS: SODIUM CHLORIDE FLUSH 0.9% 10 ML SYRINGE IVP SCH ×4 (01:46→23:24)
[2021-03-27] MEDS: ESCITALOPRAM 10 MG TABLET PO SCH (08:49)
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
[2021-03-28] MEDS: ESCITALOPRAM 10 MG TABLET PO SCH (08:33)
[2021-03-28] MEDS: SODIUM CHLORIDE FLUSH 0.9% 10 ML SYRINGE IVP SCH (08:33)
--- NOTE | 2021-03-28 10:34 | Discharge Plan ---
Discharge Plan Problem Reviewed?: Yes Disposition: [facility]/Unit DC/Xfer Condition: Stable Prescriptions: Escitalopram [Lexapro] 10 mg PO DAILY #30 tablet Diet: Regular Activity Restrictions: Activity as Tolerated Shower Restrictions: No (fall precaution) Plan of Treatment: pt is transferred to [facility] for further evaluation and treatment No Smoking: If you smoke, Please STOP! Call for help.
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
[2021-03-28 12:31] VITALS: BP 108/72
== END 2021-03-28 12:35 ==
LOC: EDUNIT# → ED 12:20 → MS2 15:41
PROVIDERS: ADMIT Internal Medicine; ATTEND Nurse Practitioner Gerontology
DX: T39.1X2A Poisoning by 4-Aminophenol derivatives, intentional self-harm, initial encounter (principal); U07.1 COVID-19; E87.6 Hypokalemia; R45.851 Suicidal ideations; F43.10 Post-traumatic stress disorder, unspecified; F32.A Depression, unspecified; Z04.1 Encounter for examination and observation following transport accident
CPT/HCPCS: 0202U; 36415; 80048; 80053; 80076; 80306; 80307; 80320; 80329; 81003; 81025; 83690; 83735; 84443; 85025; 85610; 96365; 96366; 96375; 96376; 99285; A9270; G0378; G0426; J0132; J3490; J7120; Q0162; Q3014; 81001; 87086